=== PATIENT | female | born 1965 | race Caucasian/White ===

== ENCOUNTER 2016-08-14 18:37 | Emergency (ER) | payer SELFPAY ==
[2016-08-14 18:55] VITALS: BP 141/63
[2016-08-14 19:50] LABS: OBC FLU VALID
[2016-08-14] MEDS ORDERED: IPRATRPIUM/ALBUTEROL 0.5/2.5MG 3 ML NEBU. NEB ONE (20:00)
[2016-08-14] MEDS ORDERED: BENZONATATE 100 MG CAPSULE. PO ONE (20:00)
[2016-08-14] MEDS ORDERED: PREDNISONE 20 MG TABLET PO ONE (20:00)
[2016-08-14] MEDS ORDERED: NAPROXEN 250 MG TABLET PO ONE (20:00)
[2016-08-14] MEDS ORDERED: AZITHROMYCIN 250 MG TABLET PO ONE (20:15)
[2016-08-14] MEDS ORDERED: BENZ100C PO (20:26)
[2016-08-14] MEDS ORDERED: PROAIR HFA8.5 GM INH (20:26)
[2016-08-14] MEDS ORDERED: AZIT250T PO (20:26)
[2016-08-14] MEDS ORDERED: NAPR250T2 PO (20:26)
--- NOTE | 2016-08-14 22:11 | ED.ADGEN ---
Past Medical History Past Medical History: Asthma, CAD, Depression, Diabetes-Type II, High Cholesterol, Hypertension Additional Past Medical Histor: PERIPHERAL NEUROPATHY Past Surgical History: Additional Past Surgical Histo: CARPAL TUNNEL Additional Information: 1 PPD Alcohol Use: None Drug Use: None Adult General Chief Complaint Chief Complaint: SHORTNESS OF BREATH HPI HPI Patient is a 51 year old woman, history of type 2 diabetes mellitus, hypertension, hyperlipidemia, CAD, who presents to the emergency department with a complaint of cough productive of clear sputum, fever, nasal congestion, sore throat, generalized malaise and body aches over the past several days. Patient states that she's had sick contacts among her children and , who are currently her feeling better at this time. She states that she was using her albuterol inhaler home, did run out of the medication. She states she has been taking other medications as directed. No recent hospitalization or antibiotic use. She does not take steroids regular basis. Noted be wheezing upon arrival in the ED, oxygen saturation is in the mid to upper 90s, heart rate is in the 80s, patient is afebrile in the ED without receiving any antipyretics. Patient does smoke at least a half pack per day, but have been able to smoke over the past several days due to symptoms severity. Review of Systems Review of Systems Constitutional: Fevers and chills. Eyes: Denies change in visual acuity. [] HENT: Nasal congestion and sore throat over the past several days. [] Respiratory: Cough productive of clear sputum, shortness of breath, wheezing. Cardiovascular: Denies chest pain or edema. [] GI: Denies abdominal pain, nausea, vomiting, bloody stools or diarrhea. [] : Denies dysuria. [] Musculoskeletal: Denies back pain or joint pain. [] Body aches and generalized malaise. Integument: Denies rash. [] Neurologic: Denies headache, focal weakness or sensory changes. [] Endocrine: Denies polyuria or polydipsia. [] Lymphatic: Denies swollen glands. [] Psychiatric: Denies depression or anxiety. [] Current Medications Current Medications Current Medications Medications (Trade) Dose Ordered Sig/Erica Start Time Stop Time Status Last Admin Dose Admin Albuterol/ Ipratropium (Duoneb) 3 ml 1X ONCE 08/14/16 20:00 08/14/16 20:01 DC 08/14/16 19:46 3 ML Azithromycin (Zithromax) 500 mg 1X ONCE 08/14/16 20:15 08/14/16 20:26 DC Benzonatate (Tessalon Perle) 100 mg 1X ONCE 08/14/16 20:00 08/14/16 20:01 DC 08/14/16 19:42 100 MG Naproxen (Naprosyn) 250 mg 1X ONCE 08/14/16 20:00 08/14/16 20:01 DC 08/14/16 19:42 250 MG Prednisone (Prednisone) 40 mg 1X ONCE 08/14/16 20:00 08/14/16 20:01 DC 08/14/16 19:43 40 MG Allergies Allergies Allergies Coded Allergies Type Severity Reaction Last Updated Verified No Known Drug Allergies 08/14/16 No Physical Exam Physical Exam Constitutional: Well developed, well nourished, no acute distress, non-toxic appearance. [] HENT: Normocephalic, atraumatic, bilateral external ears normal, oropharynx moist, no oral exudates, nose normal. [] Eyes: PERRLA, EOMI, conjunctiva normal, no discharge. [] Neck: Normal range of motion, no tenderness, supple, no stridor. [] Cardiovascular:Heart rate regular rhythm, no murmur [] Lungs & Thorax: Bilateral breath sounds clear to auscultation [] Abdomen: Bowel sounds normal, soft, no tenderness, no masses, no pulsatile masses. [] Skin: Warm, dry, no erythema, no rash. [] Back: No tenderness, no CVA tenderness. [] Extremities: No tenderness, no cyanosis, no clubbing, ROM intact, no edema. [] Neurologic: Alert and oriented X 3, normal motor function, normal sensory function, no focal deficits noted. [] Psychologic: Affect normal, judgement normal, mood normal. [] Current Patient Data Vital Signs Vital Signs Date Time Temp Pulse Resp B/P Pulse Ox O2 Delivery O2 Flow Rate FiO2 08/14/16 19:44 96 Room Air 08/14/16 18:55 98.9 81 16 141/63 98.9 Lab Values Laboratory Tests Test 08/14/16 19:14 Influenza Type A Antigen Negative (NEGATIVE) Influenza Type B Antigen Negative (NEGATIVE) EKG EKG ECG: Rhythm strip: Heart rate 80 beats minute, sinus rhythm, no ectopy. As interpreted by me. [] Radiology/Procedures Radiology/Procedures Chest x-ray: PA and lateral: Patient with hyperinflation, mild haziness lower lobes bilaterally, no discrete infiltrates or effusion identified, most consistent with viral infection. As interpreted by me. Course & Med Decision Making Course & Med Decision Making Pertinent Labs and Imaging studies reviewed. (See chart for details) Patient received a DuoNeb in the ED, along with oral steroids, Tessalon Perle. Chest x-ray reveals haziness in the bilateral lobes, no discrete infiltrate, symptoms and examination are consistent with a viral illness, however based on patient's history, smoking, severity of cough, and x-ray findings, will additionally treat with a Z-Jovi, for she first dose of azithromycin in the ED without issue. Discussed with patient that her symptoms are most consistent with a viral illness, she was ambulated in the ED, trial ambulation with heart rate in the 80s, oxygen saturation in the mid upper 90s, with no significant symptoms. Patient written for additional 4 days of azithromycin, Tessalon Perle , naproxen, and albuterol inhaler, given clear and detailed return instructions with which she voiced understanding and agreement. Patient discharged home in stable condition to follow up with her PCP, and return to the ED for concerning symptoms as discussed. Sahara Disclaimer Sahara Disclaimer This electronic medical record was generated, in whole or in part, using a voice recognition dictation system. Departure Impression: Primary Impression: Bronchitis Additional Impression: Tobacco abuse Disposition: 01 HOME, SELF-CARE Condition: IMPROVED Scripts Albuterol Sulfate (Proair Hfa Inhaler)8.5 Gm Hfa.aer.ad1 Puff INH PRN Q6HRS PRN SHORTNESS OF BREATH #1 INHALER Ref 0 Prov:KEVINJOSH DO 08/14/16 Azithromycin (Zithromax)250 Mg [id number] Mg PO DAILY COUGH #4 TAB Ref 0 Prov:KEVINJOSH Mejia DO 08/14/16 Benzonatate (Tessalon Perle)100 Mg Capsule1 Cap PO TID PRN COUGH #21 CAP Prov:KEVINJOSH Mejia DO 08/14/16 Naproxen 250 Mg [id number] Mg PO BID PRN PAIN #10 Prov:KEVINJOSH COLLADO DO 08/14/16 Problem Qualifiers JOSH BROWN DO Aug 14, 2016 22:11
--- NOTE | 2016-08-15 08:48 | RAD ---
Chest, 2 views, 08/14/2016: History: Cough, shortness of breath The heart size and pulmonary vascularity are normal. There is a minimal hazy opacity laterally in the left base compatible with minimal infiltrate or scarring. The right lung is clear. There is no evidence of pleural fluid. Minimal spurring is present in the spine. IMPRESSION: Minimal left basilar infiltrate or scarring.
== END 2016-08-14 20:40 | disposition home or self-care (01) ==
LOC: ER 18:37
DX: J40 Bronchitis, not specified as acute or chronic (principal); F17.210 Nicotine dependence, cigarettes, uncomplicated; E11.42 Type 2 diabetes mellitus with diabetic polyneuropathy; J45.909 Unspecified asthma, uncomplicated; I25.10 Atherosclerotic heart disease of native coronary artery without angina pectoris; F32.9 Major depressive disorder, single episode, unspecified; E78.00 Pure hypercholesterolemia, unspecified; I10 Essential (primary) hypertension
CPT/HCPCS: 71020; 87804; 94250; 94640; 99285; J7512; J7620

== ENCOUNTER 2016-11-08 20:15 | Inpatient (IN) | payer SELFPAY ==
[~2016-11-08] VITALS: Ht 172.7 cm; Wt 86.2 kg
[~2016-11-08 20:15] MED LIST: AZIT250T PO; BENZ100C PO; NAPR250T2 PO; PROAIR HFA8.5 GM INH
--- NOTE | 2016-11-08 20:26 | PHYS DOC ---
Past Medical History Past Medical History: Asthma, CAD, Depression, Diabetes-Type II, High Cholesterol, Hypertension Additional Past Medical Histor: PERIPHERAL NEUROPATHY Past Surgical History: Additional Past Surgical Histo: CARPAL TUNNEL Alcohol Use: None Drug Use: None Adult General Chief Complaint Chief Complaint: SHORTNESS OF BREATH HPI HPI Patient is a 51 year old female presents emergency department stating that she has having shortness of air difficulty breathing. She states that she's been having this for the last 2 weeks. She states that she used her albuterol inhaler prior to arrival and still continues to have wheezing throughout. Patient states that she still continues to smoke cigarettes. She was seen here in the end of July was diagnosed with bronchitis. Patient does state she's had a cough this been nonproductive. Denies fever, chills or nausea vomiting Review of Systems Review of Systems Constitutional: Denies fever or chills [] Eyes: Denies change in visual acuity, redness, or eye pain [] HENT: Denies nasal congestion or sore throat [] Respiratory: cough with shortness of breath [] Cardiovascular: No additional information not addressed in HPI [] GI: Denies abdominal pain, nausea, vomiting, bloody stools or diarrhea [] : Denies dysuria or hematuria [] Musculoskeletal: Denies back pain or joint pain [] Integument: Denies rash or skin lesions [] Neurologic: Denies headache, focal weakness or sensory changes [] Current Medications Current Medications Current Medications Medications (Trade) Dose Ordered Sig/Erica Start Time Stop Time Status Last Admin Dose Admin Acetaminophen (Tylenol) 650 mg 1X ONCE 11/08/16 21:30 11/08/16 21:31 DC 11/08/16 21:14 650 MG Albuterol Sulfate (Ventolin Neb Soln) 2.5 mg PRN Q4HRS PRN 11/08/16 22:15 Albuterol/ Ipratropium (Duoneb) 3 ml RTQID 11/09/16 08:00 Azithromycin (Zithromax) 500 mg 1X ONCE 11/08/16 22:30 11/08/16 22:31 Budesonide (Pulmicort) 0.5 mg RTBID 11/09/16 08:00 Methylprednisolone Sodium Succinate (Solu-Medrol 125mg Vial) 125 mg 1X ONCE 11/08/16 21:00 11/08/16 21:01 DC 11/08/16 20:44 125 MG Allergies Allergies Allergies Coded Allergies Type Severity Reaction Last Updated Verified Sulfa (Sulfonamide Antibiotics) Allergy Intermediate 11/08/16 Yes amoxicillin Allergy Intermediate RASH 11/08/16 Yes clavulanic acid Allergy Intermediate RASH 11/08/16 Yes hydrocodone Allergy Intermediate VOMITING 11/08/16 Yes Physical Exam Physical Exam Constitutional: Well developed, well nourished, no acute distress, non-toxic appearance. [] HENT: Normocephalic, atraumatic, bilateral external ears normal, oropharynx moist, no oral exudates, nose normal. [] Eyes: PERRLA, EOMI, conjunctiva normal, no discharge. [] Neck: Normal range of motion, no tenderness, supple, no stridor. [] Cardiovascular:Heart rate regular rhythm, no murmur [] Lungs & Thorax: Bilateral breath sounds with wheezes noted throughout.] Skin: Warm, dry, no erythema, no rash. [] Back: No tenderness Extremities: No tenderness, no cyanosis, no clubbing, ROM intact, no edema. [] Neurologic: Alert and oriented X 3, normal motor function, normal sensory function, no focal deficits noted. [] Psychologic: Affect normal, judgement normal, mood normal. [] Current Patient Data Vital Signs Vital Signs Date Time Temp Pulse Resp B/P Pulse Ox O2 Delivery O2 Flow Rate FiO2 11/08/16 21:16 Room Air 11/08/16 20:20 97.8 80 26 96 97.8 EKG EKG [] Radiology/Procedures Radiology/Procedures [] Course & Med Decision Making Course & Med Decision Making Pertinent Labs and Imaging studies reviewed. (See chart for details) Patient has been provided with 2 respiratory treatments here in the emergency department which she still needs to have wheezing throughout with shortness of air. Patient is very tearful stating that she really doesn't feel well and she would really like to go home although she continues to state that she does not have any medications at home as she is not able to afford them. Explained to patient that we need to get her wheezing and shortness of air under control they for admission into the hospital is recommended. Call his been placed to the hospitalist for admission. [address] pisano in regards to admission for this patient. Orders have been completed. [] Dragtyler Disclaimer Dragon Disclaimer This electronic medical record was generated, in whole or in part, using a voice recognition dictation system. Departure Departure Impression: Primary Impression: Asthma exacerbation Disposition: ADMITTED INPATIENT Admitting Physician: Bernadine Pisano Condition: STABLE Referrals: NO PCP (PCP) BRENDA WEBB APRN Nov 08, 2016 20:26
[2016-11-08] MEDS ORDERED: methylPREDNISolone SOD SUCC PF 125 MG/2 ML VIAL. IM ONE (21:00)
[2016-11-08] MEDS ORDERED: IPRATRPIUM/ALBUTEROL 0.5/2.5MG 3 ML NEBU. NEB ONE (21:00)
[2016-11-08] MEDS ORDERED: ALBUTEROL SULFATE 2.5 MG/3 ML NEBU. NEB ONE (21:15)
[2016-11-08] MEDS ORDERED: ACETAMINOPHEN 325 MG TABLET. PO ONE (21:30)
[2016-11-08] MEDS ORDERED: HYDROcodone/CHLORPHEN POLIS 5 ML SUS.ER.12H PO PRN (22:00)
[2016-11-08] MEDS ORDERED: guaiFENesin DM 200MG/20MG 10 ML SYRUP PO PRN (22:00)
[2016-11-08] MEDS ORDERED: ALBUTEROL SULFATE 2.5 MG/3 ML NEBU. NEB PRN (22:15)
[2016-11-08 22:19] LABS: BASO # 0.1 x10^3/uL (0.0-0.2); BASO % 1 % (0-3); EOS % 0 % (0-3); HEMATOCRIT 44.8 % (36.0-47.0); HEMOGLOBIN 14.9 g/dL (12.0-15.5); LYMPH # 2.2 x10^3/uL (1.0-4.8); LYMPH % 13 % (24-48); MEAN CORPUSCULAR HEMOGLOBIN 30 pg (25-35); MEAN CORPUSCULAR HGB CONC 33 g/dL (31-37); MEAN CORPUSCULAR VOLUME 89 fL (79-100); MONO % 5 % (0-9); NEUT % 81 % (31-73); PLATELET COUNT 307 x10^3/uL (140-400); RED BLOOD COUNT 5.04 x10^6/uL (3.50-5.40); RED CELL DISTRIBUTION WIDTH 16.3 % (11.5-14.5); WHITE BLOOD COUNT 16.8 x10^3/uL (4.0-11.0)
[2016-11-08] MEDS ORDERED: AZITHROMYCIN 250 MG TABLET. PO ONE (22:30)
[2016-11-08] MEDS ORDERED: BUDESONIDE 0.5 MG/2 ML NEBU. NEB ONE (22:30)
[2016-11-08 22:35] LABS: CALCIUM 9.6 mg/dL (8.5-10.1); CREATININE 1.1 mg/dL (0.6-1.0); POTASSIUM 4.6 mmol/L (3.5-5.1)
[2016-11-08 22:42] LABS: ALBUMIN 3.1 g/dL (3.4-5.0); ALBUMIN/GLOBULIN RATIO 0.6 (1.0-1.7); TOTAL BILIRUBIN 0.4 mg/dL (0.2-1.0)
[2016-11-08 23:00] VITALS: BP 129/54
[2016-11-08 23:22] LABS: PLT ESTIMATE ADEQUATE (ADEQUATE)
--- NOTE | 2016-11-08 23:24 | PDOC1 ---
History and Physical Date of Admission Date of Admission DATE: 11/08/16 TIME: 23:24 Identification/Chief Complaint Chief Complaint short of breath Problems: Source Source: Caregiver (daughter, ), Chart review, Patient History of Present Illness History of Present Illness Ms. Diez is a 51 year old female admit for aute shortness of air difficulty breathing. She states that she's been having this for the last 2 weeks, her has similar symptoms, sore throat, runny nose and congestion. 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 She was seen here in the end of July was diagnosed with bronchitis. Past Medical History Cardiovascular: HTN Pulmonary: Asthma Infectious disease: No pertinent hx ENT: No pertinent hx Endocrine: Diabetes Dermatology: No pertinent hx Family History Family History: No Significant Social History Smoke: <1 pack per day ALCOHOL: none Drugs: None Current Problem List Problem List Problems Medical Problems: (1) Asthma attack Status: Acute (2) Asthma exacerbation Status: Acute Problems: Current Medications Current Medications Current Medications Albuterol/ Ipratropium (Duoneb) 3 ml 1X ONCE NEB Last administered on 20:45; Start 11/08/16 at 21:00; Stop 11/08/16 at 21:01; Status DC Methylprednisolone Sodium Succinate (Solu-Medrol 125mg Vial) 125 mg 1X ONCE IM Last administered on 11/08/16 20:44; Start 11/08/16 at 21:00; Stop 11/08/16 at 21:01; Status DC Acetaminophen (Tylenol) 650 mg 1X ONCE PO Last administered on 11/08/16 21:14 ; Start 11/08/16 at 21:30; Stop 11/08/16 at 21:31; Status DC Albuterol Sulfate (Ventolin Neb Soln) 2.5 mg 1X ONCE NEB Last administered on 11/08/16 21:18; Start 11/08/16 at 21:15; Stop 11/08/16 at 21:19; Status DC Albuterol/ Ipratropium (Duoneb) 3 ml RTQID NEB ; Start 11/09/16 at 08:00; Stop 11/10/16 at 07:59; Status Cancel Azithromycin (Zithromax) 500 mg 1X ONCE PO ; Start 11/08/16 at 22:30; Stop at 22:31; Status DC Budesonide (Pulmicort) 0.5 mg 1X ONCE NEB ; Start 11/08/16 at 22:30; Stop 11/08 at 22:31; Status DC Budesonide (Pulmicort) 0.5 mg RTBID NEB ; Start 11/09/16 at 08:00 Albuterol/ Ipratropium (Duoneb) 3 ml RTQID NEB ; Start 11/09/16 at 08:00 Albuterol Sulfate (Ventolin Neb Soln) 2.5 mg PRN Q4HRS PRN NEB DYSPNEA; Start 11/08/16 at 22:15 Guaifenesin (Robitussin Dm) 10 ml PRN Q6HRS PRN PO COUGH; Start 11/08/16 at 22: 00 Chlorphenir/ Hydrocodone Polistirex (Tussionex) 5 ml PRN Q12HR PRN PO COUGH; Start 11/08/16 at 22:00; Stop 11/08/16 at 22:16; Status DC Prednisone (Prednisone) 60 mg DAILY08 PO ; Start 11/09/16 at 08:00 Active Scripts Active Proair Hfa Inhaler (Albuterol Sulfate) 8.5 Gm Hfa.aer.ad 1 Puff INH PRN Q6HRS PRN Zithromax (Azithromycin) 250 Mg Tablet 250 Mg PO DAILY Tessalon Perle (Benzonatate) 100 Mg Capsule 1 Cap PO TID PRN Naproxen 250 Mg Tablet 250 Mg PO BID PRN Allergies Allergies: Coded Allergies: Sulfa (Sulfonamide Antibiotics) (Verified Allergy, Intermediate, 11/08/16) amoxicillin (Verified Allergy, Intermediate, RASH, 11/08/16) clavulanic acid (Verified Allergy, Intermediate, RASH, 11/08/16) hydrocodone (Verified Allergy, Intermediate, VOMITING, 11/08/16) ROS General: YES: Appetite, Chills, Fatigue, Malaise PSYCHOLOGICAL ROS: YES: Irritablity, Sleep disturbances, No: Anxiety, Behavioral Disorder, Concentration difficultie, Decreased libido , Depression, Disorientation, Hallucinations, Hostility, Memory difficulties, Mood Swings, Obsessive thoughts, Other Eyes: No Blurry vision, No Decreased vision, No Double vision, No Dry eyes, No Excessive tearing, No Eye Pain, No Itchy Eyes, No Loss of vision, No Other, No Photophobia, No Scotomata, No Uses contacts, No Uses glasses HEENT: YES: Heacaches, Nasal congestion, Sneezing, Sore Throat, No: Epistaxis, Hearing change, Nasal discharge, Oral lesions, Other, Sinus pain, Snoring, Tinnitus, Vertigo, Visual Changes, Vocal changes Respiratory: YES: Cough, SOB with excertion, No: Hemoptysis, Orthopnea, Other, Pleuritic Pain, Shortness of breath, Sputum Changes, Stridor, Tachypnea, Wheezing Cardiovascular: No Chest Pain, No Edema, No Lt Headedness, No Orthopnea, No Other, No Palpitations, No Paroxysmal Noc. Dyspnea Gastrointestinal: Yes Nausea, No Abdominal Pain, No Constipation, No Diarrhea, No Hematochezia, No Melena, No Other, No Vomiting Genitourinary: No , No , No , No , No , No , No , No Discharge, No Dysuria, No Flank Pain, No Frequency, No Hematuria, No Incontinence, No Other, No Pain, No Retention, No Urgency Musculoskeletal: Yes Joint Pain, No Gait Disturbance, No Joint Stiffness, No Joint Swelling, No Muscle Pain, No Muscular Weakness, No Other, No Pain In:, No Swelling In: Neurological: No Behavorial Changes, No Bowel/Bladder ControlChng, No Confusion , No Dizziness, No Gait Disturbance, No Headaches, No Impaired Coord/balance, No Memory Loss, No Numbness/Tingling, No Other, No Seizures, No Speech Problems , No Tremors, No Visual Changes, No Weakness Skin: Yes Dry Skin, No Acne, No Eczema, No Hair Changes, No Lumps, No Mole Changes, No Mottling, No Nail Changes, No Other, No Pruritus, No Rash, No Skin Lesion Changes Physical Exam General: Alert, Cooperative, mild distress HEENT: Atraumatic, PERRLA, EOMI, Other (dry OP) Lungs: Clear to auscultation, Normal air movement, Other (rales, end wheeze, ) Heart: S1S2, no murmurs Abdomen: Normal bowel sounds, Soft Extremities: No clubbing, No edema Skin: No significant lesion Neuro: Normal speech, Normal tone, Cranial nerves 3-12 NL Psych/Mental Status: Mood NL, Other (lethargic) Vitals Vitals Vital Signs Date Time Temp Pulse Resp B/P Pulse Ox O2 Delivery O2 Flow Rate FiO2 11/08/16 22:00 78 20 140/63 98 Room Air 11/08/16 20:20 97.8 97.8 Labs Labs Laboratory Tests Test 11/08/16 22:00 White Blood Count 16.8x10^3/uL (4.0-11.0) Red Blood Count 5.04x10^6/uL (3.50-5.40) Hemoglobin 14.9g/dL (12.0-15.5) Hematocrit 44.8% (36.0-47.0) Mean Corpuscular Volume 89fL (79-100) Mean Corpuscular Hemoglobin 30pg (25-35) Mean Corpuscular Hemoglobin Concent 33g/dL (31-37) Red Cell Distribution Width 16.3% (11.5-14.5) Platelet Count 307x10^3/uL (140-400) Neutrophils (%) (Auto) 81% (31-73) Lymphocytes (%) (Auto) 13% (24-48) Monocytes (%) (Auto) 5% (0-9) Eosinophils (%) (Auto) 0% (0-3) Basophils (%) (Auto) 1% (0-3) Neutrophils # (Auto) 13.6x10^3uL (1.8-7.7) Lymphocytes # (Auto) 2.2x10^3/uL (1.0-4.8) Monocytes # (Auto) 0.9x10^3/uL (0.0-1.1) Eosinophils # (Auto) 0.0x10^3/uL (0.0-0.7) Basophils # (Auto) 0.1x10^3/uL (0.0-0.2) Segmented Neutrophils % 79% (35-66) Band Neutrophils % 6% (0-9) Lymphocytes % 13% (24-48) Monocytes % 2% (0-10) Platelet Estimate Adequate (ADEQUATE) Sodium Level 134mmol/L (136-145) Potassium Level 4.6mmol/L (3.5-5.1) Chloride Level 98mmol/L (98-107) Carbon Dioxide Level 26mmol/L (21-32) Anion Gap 10 (6-14) Blood Urea Nitrogen 22mg/dL (7-20) Creatinine 1.1mg/dL (0.6-1.0) Estimated GFR (Cockcroft-Gault) 52.0 BUN/Creatinine Ratio 20 (6-20) Glucose Level 390mg/dL (70-99) Calcium Level 9.6mg/dL (8.5-10.1) Total Bilirubin 0.4mg/dL (0.2-1.0) Aspartate Amino Transf (AST/SGOT) 9U/L (15-37) Alanine Aminotransferase (ALT/SGPT) 20U/L (14-59) Alkaline Phosphatase 144U/L (46-116) Total Protein 8.0g/dL (6.4-8.2) Albumin 3.1g/dL (3.4-5.0) Albumin/Globulin Ratio 0.6 (1.0-1.7) Laboratory Tests Test 11/08/16 22:00 White Blood Count 16.8x10^3/uL (4.0-11.0) Red Blood Count 5.04x10^6/uL (3.50-5.40) Hemoglobin 14.9g/dL (12.0-15.5) Hematocrit 44.8% (36.0-47.0) Mean Corpuscular Volume 89fL (79-100) Mean Corpuscular Hemoglobin 30pg (25-35) Mean Corpuscular Hemoglobin Concent 33g/dL (31-37) Red Cell Distribution Width 16.3% (11.5-14.5) Platelet Count 307x10^3/uL (140-400) Neutrophils (%) (Auto) 81% (31-73) Lymphocytes (%) (Auto) 13% (24-48) Monocytes (%) (Auto) 5% (0-9) Eosinophils (%) (Auto) 0% (0-3) Basophils (%) (Auto) 1% (0-3) Neutrophils # (Auto) 13.6x10^3uL (1.8-7.7) Lymphocytes # (Auto) 2.2x10^3/uL (1.0-4.8) Monocytes # (Auto) 0.9x10^3/uL (0.0-1.1) Eosinophils # (Auto) 0.0x10^3/uL (0.0-0.7) Basophils # (Auto) 0.1x10^3/uL (0.0-0.2) Segmented Neutrophils % 79% (35-66) Band Neutrophils % 6% (0-9) Lymphocytes % 13% (24-48) Monocytes % 2% (0-10) Platelet Estimate Adequate (ADEQUATE) Sodium Level 134mmol/L (136-145) Potassium Level 4.6mmol/L (3.5-5.1) Chloride Level 98mmol/L (98-107) Carbon Dioxide Level 26mmol/L (21-32) Anion Gap 10 (6-14) Blood Urea Nitrogen 22mg/dL (7-20) Creatinine 1.1mg/dL (0.6-1.0) Estimated GFR (Cockcroft-Gault) 52.0 BUN/Creatinine Ratio 20 (6-20) Glucose Level 390mg/dL (70-99) Calcium Level 9.6mg/dL (8.5-10.1) Total Bilirubin 0.4mg/dL (0.2-1.0) Aspartate Amino Transf (AST/SGOT) 9U/L (15-37) Alanine Aminotransferase (ALT/SGPT) 20U/L (14-59) Alkaline Phosphatase 144U/L (46-116) Total Protein 8.0g/dL (6.4-8.2) Albumin 3.1g/dL (3.4-5.0) Albumin/Globulin Ratio 0.6 (1.0-1.7) VTE Prophylaxis Ordered VTE Prophylaxis Devices: No VTE Pharmacological Prophylaxi: Yes Assessment/Plan Assessment/Plan Asthma exacerbation acute bronchitis htn, accel, out of meds for almost amonth, takes lisinopril 40 normally SIRS, leukocytosis, tachypnea, abx given in ER, will treat as sepsis, gentle with fluid due to accelerated HTN tobaccoism, cessation urged, nicotine patch here dehydrated in appearance, , IV fluid X1 liter, will do 1/2 NS for accel htn, serum Na+ level noted Dm2, marked hyperglycemia, no home meds listed, 125 solumedrol given in ER will surely exacerbate, levemir now, and aspart now and sched and SSI serum alb 3.1, mild protein malnutrition due to acute illness only, pt is obese admit KARINA CONDE MD Nov 08, 2016 23:24
[2016-11-08] MEDS ORDERED: NON FORMULARY ITEM (Albuterol Sulfate (Proair Hfa Inhaler) 1 PUFF) INH PRN (23:30)
[2016-11-08] MEDS ORDERED: IV 1/2 NORMAL SALINE 1,000 ML IV ONE (23:30)
[2016-11-08] MEDS ORDERED: BENZONATATE 100 MG CAPSULE. PO PRN (23:30)
[2016-11-08] MEDS ORDERED: DEXTROSE 50% 25 GM / 50ML DISP.SYRIN. IV PRN (23:30)
[2016-11-08] MEDS ORDERED: INSULIN DETEMIR 300 UNITS/3 ML INSULN.PEN. SQ SCH (23:45)
[2016-11-08] MEDS ORDERED: NICOTINE 14MG PATCH. TD PRN (23:45)
[2016-11-08] MEDS ORDERED: INSULIN ASPART 300 UNITS/3 ML INSULN.PEN SQ ONE (23:45)
--- NOTE | 2016-11-09 00:47 | ACF ---
Admission Forms Criteria ASTHMA Clinical Indications for Admission to Inpatient Care (Place 'X' for any and all applicable criteria): Admission is indicated for ANY ONE of the following (1)(2)(3)(4)(5): [ ]I. Absent or markedly diminished breath sounds (silent chest) [ ]II. Oxygen saturation < 92% [ ]III. PaCO2 = / > 42 mm Hg (5.6 kPa) [ ]IV. Peak expiratory flow rate < 40% of predicted or personal best after treatment. [ ]V. Peak expiratory flow rate < 33% of predicted or personal before after treatment [ ]. Change in mental status [ ]VII. Ventilatory support required [ ]VIII. PaO2 < 60 mm Hg (8.0 kPa) [ ]IX. Cyanosis [ ]X. Cardiac dysrhythmia (e.g., bradycardia) [ ]XI. Hemodynamic instability [ ]XII. Radiographic evidence of complication requiring inpatient treatment (e.g., pneumonia, pneumothorax) [X ]XIII. Inpatient admission required rather than observation care (also use Asthma: Observation Care guideline as appropriate) because of ANY ONE of the following: [X ]a) Respiratory finding that is severe or persistent (eg, dyspnea, tachypnea, accessory muscle use) [ ]b) Airflow measurements less than 60% of predicted or personal best that persist (e.g., over 24 hours) or worsen despite treatments [ ]c) Supplemental oxygen or respiratory treatments for over 24 hours that are performable only in acute inpatient setting [ ]d) Other condition, treatment or monitoring requiring inpatient admission. Extended stay beyond goal length of stay may be needed for (26)(27)(28): [ ]a) Severe respiratory failure (23) (29) (30) [ ]b) Secondary causes and complications (25) [ ]c) Status asthmaticus [ ]d) Chronic obstructive asthma [ ]e) Older patients (29) [ ]f) Slow resolution [ ]g) Clinically significant exacerbation of comorbidities (eg, sosa. heart failure, atrial fibrillation) The original [employer] content created by [employer] has been revised. The portions of the content which have been revised are identified through the use of italic text or in bold, and [facility] [employer] has neither reviewed nor approved the modified material. All other unmodified content is copyright [facility] [employer] Please see references footnoted in the original [facility] edition 2016 Admission Criteria Met?: Yes RENUKA NOEL Nov 09, 2016 00:47
[2016-11-09 03:00] VITALS: BP 132/60
[2016-11-09 06:16] LABS: BASO % 0 % (0-3); EOS % 0 % (0-3); HEMATOCRIT 44.4 % (36.0-47.0); HEMOGLOBIN 14.4 g/dL (12.0-15.5); LYMPH # 0.9 x10^3/uL (1.0-4.8); LYMPH % 6 % (24-48); MEAN CORPUSCULAR HEMOGLOBIN 29 pg (25-35); MEAN CORPUSCULAR HGB CONC 33 g/dL (31-37); MEAN CORPUSCULAR VOLUME 90 fL (79-100); MONO % 1 % (0-9); NEUT % 93 % (31-73); PLATELET COUNT 286 x10^3/uL (140-400); RED BLOOD COUNT 4.95 x10^6/uL (3.50-5.40); RED CELL DISTRIBUTION WIDTH 16.5 % (11.5-14.5); WHITE BLOOD COUNT 15.8 x10^3/uL (4.0-11.0)
[2016-11-09] MEDS ORDERED: INSULIN ASPART 300 UNITS/3 ML INSULN.PEN SQ ONE (06:30)
[2016-11-09 06:44] LABS: CALCIUM 8.9 mg/dL (8.5-10.1); CREATININE 1.1 mg/dL (0.6-1.0); POTASSIUM 4.7 mmol/L (3.5-5.1)
[2016-11-09 07:00] VITALS: BP 139/68
[2016-11-09 07:07] LABS: NEG OBC UR NEG; POS OBC UR POS
[2016-11-09 07:12] LABS: BILIRUBIN,URINE NEGATIVE (NEG); GLUCOSE,URINE >=1000 mg/dL (NEG); NITRITE,URINE NEGATIVE (NEG); PH,URINE 5.5; PROTEIN,URINE NEGATIVE (NEG-TRACE)
[2016-11-09 07:27] LABS: BACTERIA,URINE 0 /HPF (0-FEW); RBC,URINE 0 /HPF (0-2); WBC,URINE 0 /HPF (0-4)
[2016-11-09] MEDS: INSULIN ASPART 300 UNITS/3 ML INSULN.PEN SQ SCH ×4 (07:30→11:21)
[2016-11-09] MEDS: IPRATRPIUM/ALBUTEROL 0.5/2.5MG 3 ML NEBU. NEB SCH ×2 (07:42→11:11)
--- NOTE | 2016-11-09 07:52 | RAD ---
Exam: PA and lateral chest radiograph History: Dyspnea for one day, asthma. Comparison: 08/14/2016. Findings: Cardiomediastinal silhouette is within normal limits for size. Vague densities are seen involving both lower lung murillo on the frontal view, may indicate mild scarring. There is interval development of irregular somewhat linear density involving the lingula. No pleural effusion is seen. Impression: 1. Both lower lung murillo demonstrate vague chronic densities, which could indicate mild scarring/fibrotic change. 2. There is new roughly linear density involving the lingula, may represent atelectasis or possibly developing airspace disease.
[2016-11-09] MEDS ORDERED: predniSONE 20 MG TABLET PO SCH (08:00)
[2016-11-09] MEDS ORDERED: BUDESONIDE 0.5 MG/2 ML NEBU. NEB SCH (08:00)
[2016-11-09] MEDS ORDERED: IPRATRPIUM/ALBUTEROL 0.5/2.5MG 3 ML NEBU. NEB SCH (08:00)
[2016-11-09] MEDS ORDERED: LISINOPRIL 40 MG TABLET. PO SCH (09:00)
[2016-11-09] MEDS ORDERED: AZITHROMYCIN 250 MG TABLET. PO SCH (09:00)
[2016-11-09 11:18] VITALS: BP 121/63
--- NOTE | 2016-11-09 11:45 | PDOC ---
PROGRESS NOTES Chief Complaint Chief Complaint cc: sob A/P 1. Acute exacerbation of chronic obstructive pulmonary disease. 2. Possible pneumonitis. Plan Prednisone periodic bronchodilators labs reviewed, oral abx Pl see medications anticipated DC if symptoms improves Vitals Vitals Vital Signs Date Time Temp Pulse Resp B/P Pulse Ox O2 Delivery O2 Flow Rate FiO2 11/09/16 11:18 98.0 82 20 121/63 92 Room Air 98.0 Physical Exam General: Alert, Cooperative, mild distress Heart: Regular rate, Normal S2 Lungs: Wheezing Abdomen: Normal bowel sounds, Soft Extremities: No clubbing, No edema Skin: No significant lesion Labs LABS Laboratory Tests Test 11/08/16 22:00 11/09/16 00:27 11/09/16 01:00 11/09/16 04:55 White Blood Count 16.8x10^3/uL (4.0-11.0) 15.8x10^3/uL (4.0-11.0) Red Blood Count 5.04x10^6/uL (3.50-5.40) 4.95x10^6/uL (3.50-5.40) Hemoglobin 14.9g/dL (12.0-15.5) 14.4g/dL (12.0-15.5) Hematocrit 44.8% (36.0-47.0) 44.4% (36.0-47.0) Mean Corpuscular Volume 89fL (79-100) 90fL (79-100) Mean Corpuscular Hemoglobin 30pg (25-35) 29pg (25-35) Mean Corpuscular Hemoglobin Concent 33g/dL (31-37) 33g/dL (31-37) Red Cell Distribution Width 16.3% (11.5-14.5) 16.5% (11.5-14.5) Platelet Count 307x10^3/uL (140-400) 286x10^3/uL (140-400) Neutrophils (%) (Auto) 81% (31-73) 93% (31-73) Lymphocytes (%) (Auto) 13% (24-48) 6% (24-48) Monocytes (%) (Auto) 5% (0-9) 1% (0-9) Eosinophils (%) (Auto) 0% (0-3) 0% (0-3) Basophils (%) (Auto) 1% (0-3) 0% (0-3) Neutrophils # (Auto) 13.6x10^3uL (1.8-7.7) 14.7x10^3uL (1.8-7.7) Lymphocytes # (Auto) 2.2x10^3/uL (1.0-4.8) 0.9x10^3/uL (1.0-4.8) Monocytes # (Auto) 0.9x10^3/uL (0.0-1.1) 0.2x10^3/uL (0.0-1.1) Eosinophils # (Auto) 0.0x10^3/uL (0.0-0.7) 0.0x10^3/uL (0.0-0.7) Basophils # (Auto) 0.1x10^3/uL (0.0-0.2) 0.0x10^3/uL (0.0-0.2) Segmented Neutrophils % 79% (35-66) Band Neutrophils % 6% (0-9) Lymphocytes % 13% (24-48) Monocytes % 2% (0-10) Platelet Estimate Adequate (ADEQUATE) Sodium Level 134mmol/L (136-145) 133mmol/L (136-145) Potassium Level 4.6mmol/L (3.5-5.1) 4.7mmol/L (3.5-5.1) Chloride Level 98mmol/L (98-107) 97mmol/L (98-107) Carbon Dioxide Level 26mmol/L (21-32) 23mmol/L (21-32) Anion Gap 10 (6-14) 13 (6-14) Blood Urea Nitrogen 22mg/dL (7-20) 28mg/dL (7-20) Creatinine 1.1mg/dL (0.6-1.0) 1.1mg/dL (0.6-1.0) Estimated GFR (Cockcroft-Gault) 52.0 52.0 BUN/Creatinine Ratio 20 (6-20) Glucose Level 390mg/dL (70-99) 426mg/dL (70-99) Calcium Level 9.6mg/dL (8.5-10.1) 8.9mg/dL (8.5-10.1) Total Bilirubin 0.4mg/dL (0.2-1.0) Aspartate Amino Transf (AST/SGOT) 9U/L (15-37) Alanine Aminotransferase (ALT/SGPT) 20U/L (14-59) Alkaline Phosphatase 144U/L (46-116) Total Protein 8.0g/dL (6.4-8.2) Albumin 3.1g/dL (3.4-5.0) Albumin/Globulin Ratio 0.6 (1.0-1.7) Glucose (Fingerstick) 487mg/dL (70-99) Urine Collection Type Unknown Urine Color Yellow Urine Clarity Clear Urine pH 5.5 Urine Specific [place] >=1.030 Urine Protein Negativemg/dL (NEG-TRACE) Urine Glucose (UA) >=1000mg/dL (NEG) Urine Ketones (Stick) Negativemg/dL (NEG) Urine Blood Negative (NEG) Urine Nitrite Negative (NEG) Urine Bilirubin Negative (NEG) Urine Urobilinogen Dipstick 1.0mg/dL (0.2 mg/dL) Urine Leukocyte Esterase Negative (NEG) Urine RBC 0/HPF (0-2) Urine WBC 0/HPF (0-4) Urine Bacteria 0/HPF (0-FEW) Urine Test Negative (NEG) Test 11/09/16 05:54 11/09/16 07:29 11/09/16 10:48 Glucose (Fingerstick) 430mg/dL (70-99) 390mg/dL (70-99) 463mg/dL (70-99) Assessment and Plan Assessmemt and Plan Problems Medical Problems: (1) Asthma attack Status: Acute (2) Asthma exacerbation Status: Acute Problems: Comment Review of Relevant I have reviewed the following items megan (where applicable) has been applied. Labs Laboratory Tests Test 11/08/16 22:00 11/09/16 00:27 11/09/16 01:00 11/09/16 04:55 White Blood Count 16.8x10^3/uL (4.0-11.0) 15.8x10^3/uL (4.0-11.0) Red Blood Count 5.04x10^6/uL (3.50-5.40) 4.95x10^6/uL (3.50-5.40) Hemoglobin 14.9g/dL (12.0-15.5) 14.4g/dL (12.0-15.5) Hematocrit 44.8% (36.0-47.0) 44.4% (36.0-47.0) Mean Corpuscular Volume 89fL (79-100) 90fL (79-100) Mean Corpuscular Hemoglobin 30pg (25-35) 29pg (25-35) Mean Corpuscular Hemoglobin Concent 33g/dL (31-37) 33g/dL (31-37) Red Cell Distribution Width 16.3% (11.5-14.5) 16.5% (11.5-14.5) Platelet Count 307x10^3/uL (140-400) 286x10^3/uL (140-400) Neutrophils (%) (Auto) 81% (31-73) 93% (31-73) Lymphocytes (%) (Auto) 13% (24-48) 6% (24-48) Monocytes (%) (Auto) 5% (0-9) 1% (0-9) Eosinophils (%) (Auto) 0% (0-3) 0% (0-3) Basophils (%) (Auto) 1% (0-3) 0% (0-3) Neutrophils # (Auto) 13.6x10^3uL (1.8-7.7) 14.7x10^3uL (1.8-7.7) Lymphocytes # (Auto) 2.2x10^3/uL (1.0-4.8) 0.9x10^3/uL (1.0-4.8) Monocytes # (Auto) 0.9x10^3/uL (0.0-1.1) 0.2x10^3/uL (0.0-1.1) Eosinophils # (Auto) 0.0x10^3/uL (0.0-0.7) 0.0x10^3/uL (0.0-0.7) Basophils # (Auto) 0.1x10^3/uL (0.0-0.2) 0.0x10^3/uL (0.0-0.2) Segmented Neutrophils % 79% (35-66) Band Neutrophils % 6% (0-9) Lymphocytes % 13% (24-48) Monocytes % 2% (0-10) Platelet Estimate Adequate (ADEQUATE) Sodium Level 134mmol/L (136-145) 133mmol/L (136-145) Potassium Level 4.6mmol/L (3.5-5.1) 4.7mmol/L (3.5-5.1) Chloride Level 98mmol/L (98-107) 97mmol/L (98-107) Carbon Dioxide Level 26mmol/L (21-32) 23mmol/L (21-32) Anion Gap 10 (6-14) 13 (6-14) Blood Urea Nitrogen 22mg/dL (7-20) 28mg/dL (7-20) Creatinine 1.1mg/dL (0.6-1.0) 1.1mg/dL (0.6-1.0) Estimated GFR (Cockcroft-Gault) 52.0 52.0 BUN/Creatinine Ratio 20 (6-20) Glucose Level 390mg/dL (70-99) 426mg/dL (70-99) Calcium Level 9.6mg/dL (8.5-10.1) 8.9mg/dL (8.5-10.1) Total Bilirubin 0.4mg/dL (0.2-1.0) Aspartate Amino Transf (AST/SGOT) 9U/L (15-37) Alanine Aminotransferase (ALT/SGPT) 20U/L (14-59) Alkaline Phosphatase 144U/L (46-116) Total Protein 8.0g/dL (6.4-8.2) Albumin 3.1g/dL (3.4-5.0) Albumin/Globulin Ratio 0.6 (1.0-1.7) Glucose (Fingerstick) 487mg/dL (70-99) Urine Collection Type Unknown Urine Color Yellow Urine Clarity Clear Urine pH 5.5 Urine Specific [place] >=1.030 Urine Protein Negativemg/dL (NEG-TRACE) Urine Glucose (UA) >=1000mg/dL (NEG) Urine Ketones (Stick) Negativemg/dL (NEG) Urine Blood Negative (NEG) Urine Nitrite Negative (NEG) Urine Bilirubin Negative (NEG) Urine Urobilinogen Dipstick 1.0mg/dL (0.2 mg/dL) Urine Leukocyte Esterase Negative (NEG) Urine RBC 0/HPF (0-2) Urine WBC 0/HPF (0-4) Urine Bacteria 0/HPF (0-FEW) Urine Test Negative (NEG) Test 11/09/16 05:54 11/09/16 07:29 11/09/16 10:48 Glucose (Fingerstick) 430mg/dL (70-99) 390mg/dL (70-99) 463mg/dL (70-99) Laboratory Tests Test 11/08/16 22:00 11/09/16 00:27 11/09/16 01:00 11/09/16 04:55 White Blood Count 16.8x10^3/uL (4.0-11.0) 15.8x10^3/uL (4.0-11.0) Red Blood Count 5.04x10^6/uL (3.50-5.40) 4.95x10^6/uL (3.50-5.40) Hemoglobin 14.9g/dL (12.0-15.5) 14.4g/dL (12.0-15.5) Hematocrit 44.8% (36.0-47.0) 44.4% (36.0-47.0) Mean Corpuscular Volume 89fL (79-100) 90fL (79-100) Mean Corpuscular Hemoglobin 30pg (25-35) 29pg (25-35) Mean Corpuscular Hemoglobin Concent 33g/dL (31-37) 33g/dL (31-37) Red Cell Distribution Width 16.3% (11.5-14.5) 16.5% (11.5-14.5) Platelet Count 307x10^3/uL (140-400) 286x10^3/uL (140-400) Neutrophils (%) (Auto) 81% (31-73) 93% (31-73) Lymphocytes (%) (Auto) 13% (24-48) 6% (24-48) Monocytes (%) (Auto) 5% (0-9) 1% (0-9) Eosinophils (%) (Auto) 0% (0-3) 0% (0-3) Basophils (%) (Auto) 1% (0-3) 0% (0-3) Neutrophils # (Auto) 13.6x10^3uL (1.8-7.7) 14.7x10^3uL (1.8-7.7) Lymphocytes # (Auto) 2.2x10^3/uL (1.0-4.8) 0.9x10^3/uL (1.0-4.8) Monocytes # (Auto) 0.9x10^3/uL (0.0-1.1) 0.2x10^3/uL (0.0-1.1) Eosinophils # (Auto) 0.0x10^3/uL (0.0-0.7) 0.0x10^3/uL (0.0-0.7) Basophils # (Auto) 0.1x10^3/uL (0.0-0.2) 0.0x10^3/uL (0.0-0.2) Segmented Neutrophils % 79% (35-66) Band Neutrophils % 6% (0-9) Lymphocytes % 13% (24-48) Monocytes % 2% (0-10) Platelet Estimate Adequate (ADEQUATE) Sodium Level 134mmol/L (136-145) 133mmol/L (136-145) Potassium Level 4.6mmol/L (3.5-5.1) 4.7mmol/L (3.5-5.1) Chloride Level 98mmol/L (98-107) 97mmol/L (98-107) Carbon Dioxide Level 26mmol/L (21-32) 23mmol/L (21-32) Anion Gap 10 (6-14) 13 (6-14) Blood Urea Nitrogen 22mg/dL (7-20) 28mg/dL (7-20) Creatinine 1.1mg/dL (0.6-1.0) 1.1mg/dL (0.6-1.0) Estimated GFR (Cockcroft-Gault) 52.0 52.0 BUN/Creatinine Ratio 20 (6-20) Glucose Level 390mg/dL (70-99) 426mg/dL (70-99) Calcium Level 9.6mg/dL (8.5-10.1) 8.9mg/dL (8.5-10.1) Total Bilirubin 0.4mg/dL (0.2-1.0) Aspartate Amino Transf (AST/SGOT) 9U/L (15-37) Alanine Aminotransferase (ALT/SGPT) 20U/L (14-59) Alkaline Phosphatase 144U/L (46-116) Total Protein 8.0g/dL (6.4-8.2) Albumin 3.1g/dL (3.4-5.0) Albumin/Globulin Ratio 0.6 (1.0-1.7) Glucose (Fingerstick) 487mg/dL (70-99) Urine Collection Type Unknown Urine Color Yellow Urine Clarity Clear Urine pH 5.5 Urine Specific [place] >=1.030 Urine Protein Negativemg/dL (NEG-TRACE) Urine Glucose (UA) >=1000mg/dL (NEG) Urine Ketones (Stick) Negativemg/dL (NEG) Urine Blood Negative (NEG) Urine Nitrite Negative (NEG) Urine Bilirubin Negative (NEG) Urine Urobilinogen Dipstick 1.0mg/dL (0.2 mg/dL) Urine Leukocyte Esterase Negative (NEG) Urine RBC 0/HPF (0-2) Urine WBC 0/HPF (0-4) Urine Bacteria 0/HPF (0-FEW) Urine Test Negative (NEG) Test 11/09/16 05:54 11/09/16 07:29 11/09/16 10:48 Glucose (Fingerstick) 430mg/dL (70-99) 390mg/dL (70-99) 463mg/dL (70-99) Medications Current Medications Albuterol/ Ipratropium (Duoneb) 3 ml 1X ONCE NEB Last administered on 20:45; Start 11/08/16 at 21:00; Stop 11/08/16 at 21:01; Status DC Methylprednisolone Sodium Succinate (Solu-Medrol 125mg Vial) 125 mg 1X ONCE IM Last administered on 11/08/16 20:44; Start 11/08/16 at 21:00; Stop 11/08/16 at 21:01; Status DC Acetaminophen (Tylenol) 650 mg 1X ONCE PO Last administered on 11/08/16 21:14 ; Start 11/08/16 at 21:30; Stop 11/08/16 at 21:31; Status DC Albuterol Sulfate (Ventolin Neb Soln) 2.5 mg 1X ONCE NEB Last administered on 11/08/16 21:18; Start 11/08/16 at 21:15; Stop 11/08/16 at 21:19; Status DC Albuterol/ Ipratropium (Duoneb) 3 ml RTQID NEB ; Start 11/09/16 at 08:00; Stop 11/10/16 at 07:59; Status Cancel Azithromycin (Zithromax) 500 mg 1X ONCE PO Last administered on 11/09/16 00: 23; Start 11/08/16 at 22:30; Stop 11/08/16 at 22:31; Status DC Budesonide (Pulmicort) 0.5 mg 1X ONCE NEB Last administered on 11/09/16 07:43 ; Start 11/08/16 at 22:30; Stop 11/08/16 at 22:31; Status DC Budesonide (Pulmicort) 0.5 mg RTBID NEB ; Start 11/09/16 at 08:00 Albuterol/ Ipratropium (Duoneb) 3 ml RTQID NEB Last administered on 11/09/16 11:11; Start 11/09/16 at 08:00 Albuterol Sulfate (Ventolin Neb Soln) 2.5 mg PRN Q4HRS PRN NEB DYSPNEA; Start 11/08/16 at 22:15 Guaifenesin (Robitussin Dm) 10 ml PRN Q6HRS PRN PO COUGH; Start 11/08/16 at 22: 00 Chlorphenir/ Hydrocodone Polistirex (Tussionex) 5 ml PRN Q12HR PRN PO COUGH; Start 11/08/16 at 22:00; Stop 11/08/16 at 22:16; Status DC Prednisone (Prednisone) 60 mg DAILY08 PO Last administered on 11/09/16 08:08; Start 11/09/16 at 08:00 Benzonatate (Tessalon Perle) 100 mg PRN TID PRN PO COUGH; Start 11/08/16 at 23: 30 Non-Formulary Medication 1 puff PRN Q6HRS PRN INH SHORTNESS OF BREATH; Start at 23:30; Status UNV Insulin Detemir (Levemir) 15 units QHS SQ Last administered on 11/09/16 00:59 ; Start 11/08/16 at 23:45 Insulin Aspart (Novolog) 8 units TIDAC SQ Last administered on 11/09/16 07:30 ; Start 11/09/16 at 07:30 Insulin Aspart (Novolog) 15 units 1X ONCE SQ Last administered on 11/09/16 01 :00; Start 11/08/16 at 23:45; Stop 11/08/16 at 23:46; Status DC Insulin Aspart (Novolog) 0-9 UNITS TIDWMEALS SQ Last administered on 11/09/16 11:21; Start 11/09/16 at 08:00 Dextrose (Dextrose 50%-Water Syringe) 12.5 gm PRN Q15MIN PRN IV SEE COMMENTS; Start 11/08/16 at 23:30 Azithromycin 250 mg 250 mg DAILY PO Last administered on 11/09/16 08:08; Start 11/09/16 at 09:00 Sodium Chloride (Iv Sodium Chloride 0.45%) 1,000 ml @ 100 mls/hr 1X ONCE IV Last administered on 11/09/16 00:22; Start 11/08/16 at 23:30; Stop 11/09/16 at 09:29; Status DC Lisinopril (Prinivil) 40 mg DAILY PO Last administered on 11/09/16 08:09; Start 11/09/16 at 09:00 Nicotine (Nicoderm Cq 14mg) 1 patch PRN DAILY PRN TD SMOKING CESSATION Last administered on 11/09/16 08:12; Start 11/08/16 at 23:45 Insulin Aspart (Novolog) 16 units 1X ONCE SQ Last administered on 11/09/16 06 :18; Start 11/09/16 at 06:30; Stop 11/09/16 at 06:31; Status DC Active Scripts Active Proair Hfa Inhaler (Albuterol Sulfate) 8.5 Gm Hfa.aer.ad 1 Puff INH PRN Q6HRS PRN Zithromax (Azithromycin) 250 Mg Tablet 250 Mg PO DAILY Tessalon Perle (Benzonatate) 100 Mg Capsule 1 Cap PO TID PRN Naproxen 250 Mg Tablet 250 Mg PO BID PRN Vitals/I & O Vital Sign - Last 24 Hours 4/27/11/08/16 11/08/16 11/08/16 20:20 20:45 21:16 22:00 Temp 97.8 97.8 Pulse 80 78 Resp 26 20 B/P 140/63 Pulse Ox 96 98 O2 Delivery Room Air Room Air Room Air Room Air 11/08/16 11/09/16 11/09/16 11/09/16 23:00 02:56 03:00 07:00 Temp 98.0 98.4 98.4 98.0 98.4 98.4 Pulse 74 75 73 Resp 20 16 20 B/P 129/54 132/60 139/68 Pulse Ox 96 91 92 O2 Delivery Room Air Room Air 11/09/16 11/09/16 11/09/16 11/09/16 07:43 07:46 08:09 11:11 Pulse 73 B/P 139/68 Pulse Ox 93 93 91 O2 Delivery Room Air Room Air Room Air 11/09/16 11:18 Temp 98.0 98.0 Pulse 82 Resp 20 B/P 121/63 Pulse Ox 92 O2 Delivery Room Air MANISHA COLINDRES MD Nov 09, 2016 11:45
[2016-11-09] MEDS ORDERED: LEVO500T8 PO (12:25)
[2016-11-09] MEDS ORDERED: LISI40TA PO (12:27)
--- NOTE | 2016-11-09 14:11 | PDOC ---
PULMONARY PROGRESS NOTES Vitals Vital Signs Date Time Temp Pulse Resp B/P Pulse Ox O2 Delivery O2 Flow Rate FiO2 11/09/16 11:18 98.0 82 20 121/63 92 Room Air 98.0 Labs Laboratory Tests Test 11/08/16 22:00 11/09/16 00:27 11/09/16 01:00 11/09/16 04:55 White Blood Count 16.8x10^3/uL (4.0-11.0) 15.8x10^3/uL (4.0-11.0) Red Blood Count 5.04x10^6/uL (3.50-5.40) 4.95x10^6/uL (3.50-5.40) Hemoglobin 14.9g/dL (12.0-15.5) 14.4g/dL (12.0-15.5) Hematocrit 44.8% (36.0-47.0) 44.4% (36.0-47.0) Mean Corpuscular Volume 89fL (79-100) 90fL (79-100) Mean Corpuscular Hemoglobin 30pg (25-35) 29pg (25-35) Mean Corpuscular Hemoglobin Concent 33g/dL (31-37) 33g/dL (31-37) Red Cell Distribution Width 16.3% (11.5-14.5) 16.5% (11.5-14.5) Platelet Count 307x10^3/uL (140-400) 286x10^3/uL (140-400) Neutrophils (%) (Auto) 81% (31-73) 93% (31-73) Lymphocytes (%) (Auto) 13% (24-48) 6% (24-48) Monocytes (%) (Auto) 5% (0-9) 1% (0-9) Eosinophils (%) (Auto) 0% (0-3) 0% (0-3) Basophils (%) (Auto) 1% (0-3) 0% (0-3) Neutrophils # (Auto) 13.6x10^3uL (1.8-7.7) 14.7x10^3uL (1.8-7.7) Lymphocytes # (Auto) 2.2x10^3/uL (1.0-4.8) 0.9x10^3/uL (1.0-4.8) Monocytes # (Auto) 0.9x10^3/uL (0.0-1.1) 0.2x10^3/uL (0.0-1.1) Eosinophils # (Auto) 0.0x10^3/uL (0.0-0.7) 0.0x10^3/uL (0.0-0.7) Basophils # (Auto) 0.1x10^3/uL (0.0-0.2) 0.0x10^3/uL (0.0-0.2) Segmented Neutrophils % 79% (35-66) Band Neutrophils % 6% (0-9) Lymphocytes % 13% (24-48) Monocytes % 2% (0-10) Platelet Estimate Adequate (ADEQUATE) Sodium Level 134mmol/L (136-145) 133mmol/L (136-145) Potassium Level 4.6mmol/L (3.5-5.1) 4.7mmol/L (3.5-5.1) Chloride Level 98mmol/L (98-107) 97mmol/L (98-107) Carbon Dioxide Level 26mmol/L (21-32) 23mmol/L (21-32) Anion Gap 10 (6-14) 13 (6-14) Blood Urea Nitrogen 22mg/dL (7-20) 28mg/dL (7-20) Creatinine 1.1mg/dL (0.6-1.0) 1.1mg/dL (0.6-1.0) Estimated GFR (Cockcroft-Gault) 52.0 52.0 BUN/Creatinine Ratio 20 (6-20) Glucose Level 390mg/dL (70-99) 426mg/dL (70-99) Calcium Level 9.6mg/dL (8.5-10.1) 8.9mg/dL (8.5-10.1) Total Bilirubin 0.4mg/dL (0.2-1.0) Aspartate Amino Transf (AST/SGOT) 9U/L (15-37) Alanine Aminotransferase (ALT/SGPT) 20U/L (14-59) Alkaline Phosphatase 144U/L (46-116) Total Protein 8.0g/dL (6.4-8.2) Albumin 3.1g/dL (3.4-5.0) Albumin/Globulin Ratio 0.6 (1.0-1.7) Glucose (Fingerstick) 487mg/dL (70-99) Urine Collection Type Unknown Urine Color Yellow Urine Clarity Clear Urine pH 5.5 Urine Specific [place] >=1.030 Urine Protein Negativemg/dL (NEG-TRACE) Urine Glucose (UA) >=1000mg/dL (NEG) Urine Ketones (Stick) Negativemg/dL (NEG) Urine Blood Negative (NEG) Urine Nitrite Negative (NEG) Urine Bilirubin Negative (NEG) Urine Urobilinogen Dipstick 1.0mg/dL (0.2 mg/dL) Urine Leukocyte Esterase Negative (NEG) Urine RBC 0/HPF (0-2) Urine WBC 0/HPF (0-4) Urine Bacteria 0/HPF (0-FEW) Urine Test Negative (NEG) Test 11/09/16 05:54 11/09/16 07:29 11/09/16 10:48 Glucose (Fingerstick) 430mg/dL (70-99) 390mg/dL (70-99) 463mg/dL (70-99) Laboratory Tests Test 11/08/16 22:00 11/09/16 00:27 11/09/16 01:00 11/09/16 04:55 White Blood Count 16.8x10^3/uL (4.0-11.0) 15.8x10^3/uL (4.0-11.0) Red Blood Count 5.04x10^6/uL (3.50-5.40) 4.95x10^6/uL (3.50-5.40) Hemoglobin 14.9g/dL (12.0-15.5) 14.4g/dL (12.0-15.5) Hematocrit 44.8% (36.0-47.0) 44.4% (36.0-47.0) Mean Corpuscular Volume 89fL (79-100) 90fL (79-100) Mean Corpuscular Hemoglobin 30pg (25-35) 29pg (25-35) Mean Corpuscular Hemoglobin Concent 33g/dL (31-37) 33g/dL (31-37) Red Cell Distribution Width 16.3% (11.5-14.5) 16.5% (11.5-14.5) Platelet Count 307x10^3/uL (140-400) 286x10^3/uL (140-400) Neutrophils (%) (Auto) 81% (31-73) 93% (31-73) Lymphocytes (%) (Auto) 13% (24-48) 6% (24-48) Monocytes (%) (Auto) 5% (0-9) 1% (0-9) Eosinophils (%) (Auto) 0% (0-3) 0% (0-3) Basophils (%) (Auto) 1% (0-3) 0% (0-3) Neutrophils # (Auto) 13.6x10^3uL (1.8-7.7) 14.7x10^3uL (1.8-7.7) Lymphocytes # (Auto) 2.2x10^3/uL (1.0-4.8) 0.9x10^3/uL (1.0-4.8) Monocytes # (Auto) 0.9x10^3/uL (0.0-1.1) 0.2x10^3/uL (0.0-1.1) Eosinophils # (Auto) 0.0x10^3/uL (0.0-0.7) 0.0x10^3/uL (0.0-0.7) Basophils # (Auto) 0.1x10^3/uL (0.0-0.2) 0.0x10^3/uL (0.0-0.2) Segmented Neutrophils % 79% (35-66) Band Neutrophils % 6% (0-9) Lymphocytes % 13% (24-48) Monocytes % 2% (0-10) Platelet Estimate Adequate (ADEQUATE) Sodium Level 134mmol/L (136-145) 133mmol/L (136-145) Potassium Level 4.6mmol/L (3.5-5.1) 4.7mmol/L (3.5-5.1) Chloride Level 98mmol/L (98-107) 97mmol/L (98-107) Carbon Dioxide Level 26mmol/L (21-32) 23mmol/L (21-32) Anion Gap 10 (6-14) 13 (6-14) Blood Urea Nitrogen 22mg/dL (7-20) 28mg/dL (7-20) Creatinine 1.1mg/dL (0.6-1.0) 1.1mg/dL (0.6-1.0) Estimated GFR (Cockcroft-Gault) 52.0 52.0 BUN/Creatinine Ratio 20 (6-20) Glucose Level 390mg/dL (70-99) 426mg/dL (70-99) Calcium Level 9.6mg/dL (8.5-10.1) 8.9mg/dL (8.5-10.1) Total Bilirubin 0.4mg/dL (0.2-1.0) Aspartate Amino Transf (AST/SGOT) 9U/L (15-37) Alanine Aminotransferase (ALT/SGPT) 20U/L (14-59) Alkaline Phosphatase 144U/L (46-116) Total Protein 8.0g/dL (6.4-8.2) Albumin 3.1g/dL (3.4-5.0) Albumin/Globulin Ratio 0.6 (1.0-1.7) Glucose (Fingerstick) 487mg/dL (70-99) Urine Collection Type Unknown Urine Color Yellow Urine Clarity Clear Urine pH 5.5 Urine Specific [place] >=1.030 Urine Protein Negativemg/dL (NEG-TRACE) Urine Glucose (UA) >=1000mg/dL (NEG) Urine Ketones (Stick) Negativemg/dL (NEG) Urine Blood Negative (NEG) Urine Nitrite Negative (NEG) Urine Bilirubin Negative (NEG) Urine Urobilinogen Dipstick 1.0mg/dL (0.2 mg/dL) Urine Leukocyte Esterase Negative (NEG) Urine RBC 0/HPF (0-2) Urine WBC 0/HPF (0-4) Urine Bacteria 0/HPF (0-FEW) Urine Test Negative (NEG) Test 11/09/16 05:54 11/09/16 07:29 11/09/16 10:48 Glucose (Fingerstick) 430mg/dL (70-99) 390mg/dL (70-99) 463mg/dL (70-99) Medications Active Scripts Medications Dose Route/Sig Days Date Category Proair Hfa Inhaler (Albuterol Sulfate) 8.5 Gm Hfa.aer.ad 1 Puff INH PRN Q6HRS PRN 08/14/16 Rx Zithromax (Azithromycin) 250 Mg Tablet 250 Mg PO DAILY 08/14/16 Rx Tessalon Perle (Benzonatate) 100 Mg Capsule 1 Cap PO TID PRN 08/14/16 Rx Naproxen 250 Mg Tablet 250 Mg PO BID PRN 08/14/16 Rx Impression . NOTE DICTATED KEEGAN LOVING MD Nov 09, 2016 14:11
--- NOTE | 2016-11-10 02:24 | CONS ---
DATE OF CONSULTATION: 11/09/2016 ATTENDING PHYSICIAN: Dr. Bernadine Barnard. REASON FOR CONSULTATION: The patient is seen in pulmonary consultation at the request of Dr. Barnard for wheezing and shortness of air. HISTORY OF PRESENT ILLNESS: The patient is a 51-year-old that has been smoking all of her adult life presented with increasing shortness of breath, cough productive of discolored sputum, wheezing. She ran out of her albuterol. She has no money to afford her medications. She smokes on a daily basis. PAST MEDICAL HISTORY: Otherwise unremarkable except for diabetes. SOCIAL HISTORY: There is no history of asthma. She never had asthma prior to smoking. REVIEW OF SYSTEMS: As indicated above. CURRENT MEDICATIONS: Reviewed. PHYSICAL EXAMINATION: GENERAL: The patient was in no respiratory distress. She was tearful. She wanted to be discharged, was concerned about her family situation and finances. HEENT: Eyes closed, nonicteric. NECK: Jugular venous distention was not elevated. LUNGS: Expiratory wheeze. CARDIOVASCULAR: Regular rate and rhythm with S1, S2, no S3. ABDOMEN: Soft, nontender, nondistended. EXTREMITIES: No clubbing, cyanosis or edema. IMAGING: Chest x-ray was reviewed. There is some ill-defined infiltrate, ill-defined lung markings compatible with the possibility of pneumonitis. IMPRESSION: 1. Acute exacerbation of chronic obstructive pulmonary disease. 2. Possible pneumonitis. PLAN: The patient is discharged home with prednisone 30 mg x 5 days, antibiotic for 7 days, nurse will call pharmacy to find out, which is the least expensive of antibiotic to purchase in generic form. The patient to walk ____ to my office prior to going home and will be given samples of Spiriva and/or Combivent. The above was discussed with Dr. Waite. KEEGAN LOVING MD DR: FINN/sara JOB#: [id number] / [id number]
--- NOTE | 2016-11-15 18:06 | DS ---
DATE OF DISCHARGE: 11/09/2016 DISCHARGE DIAGNOSES: 1. Acute exacerbation of chronic obstructive pulmonary disease. 2. Pneumonitis. BRIEF HOSPITAL COURSE: A 51-year-old female patient admitted to the hospital for COPD exacerbation and during hospitalization, she received periodic nebulization and prednisone. Also she was evaluated by Dr. Kamara. The patient's symptoms improved with nebulization; however, she would like to go home as she is afraid and worried about her financial bill and Dr. Kamara provided some inhalers and bronchodilators and the patient has been sent home in stable condition with scripts, antibiotics and inhalers. The patient's blood sugars are not controlled. Her HbA1c is more than 12.4. She needs to be on insulin. Due to her financial status, her medications has been not started for diabetes. DISCHARGE EXAMINATION: GENERAL: Alert, oriented x 3. HEART: S1, S2 present. LUNGS: Anterior chest clear. ABDOMEN: Soft, nontender, no organomegaly. EXTREMITIES: No edema. DISCHARGE DISPOSITION: Home. DISCHARGE CONDITION: Stable. FOLLOWUP: With primary care doctor and she should be on medications for diabetes and also probably an insulin given her HbA1c. Total time spent for discharge is 31 minutes for patient education, counseling, and coordination of care. MANISHA COLINDRES MD DR: YAZ/sara JOB#: [id number] / [id number] [place]
== END 2016-11-09 15:30 | disposition home or self-care (01) | DRG 191 ==
LOC: ER 20:15 → 5 SOUTH 21:20
PROVIDERS: ADMIT Internal Medicine; ATTEND Internal Medicine
DX: J44.1 Chronic obstructive pulmonary disease with (acute) exacerbation (principal); J45.901 Unspecified asthma with (acute) exacerbation; E44.1 Mild protein-calorie malnutrition; J44.0 Chronic obstructive pulmonary disease with (acute) lower respiratory infection; J20.9 Acute bronchitis, unspecified; I25.10 Atherosclerotic heart disease of native coronary artery without angina pectoris; F32.9 Major depressive disorder, single episode, unspecified; I10 Essential (primary) hypertension; E11.42 Type 2 diabetes mellitus with diabetic polyneuropathy; E78.00 Pure hypercholesterolemia, unspecified; E66.9 Obesity, unspecified; E11.65 Type 2 diabetes mellitus with hyperglycemia; F17.210 Nicotine dependence, cigarettes, uncomplicated; Z88.2 Allergy status to sulfonamides; Z68.28 Body mass index [BMI] 28.0-28.9, adult; Z88.8 Allergy status to other drugs, medicaments and biological substances
CPT/HCPCS: 36415; 71020; 80048; 80053; 81001; 81025; 82947; 83036; 85007; 85027; 94250; 94640; 94760; 96372; J1815; J2930; J7512; J7620; Q0144; 99285-25

== ENCOUNTER 2017-04-09 18:16 | Emergency (ER) | payer SELFPAY ==
[~2017-04-09] VITALS: Ht 172.7 cm; Wt 80.7 kg
[~2017-04-09 18:16] MED LIST changes: +LEVO500T8 PO; +LISI40TA PO; -NAPR250T2 PO; +NAPR250T6 PO
[2017-04-09] MEDS ORDERED: MUPI15CR TP (19:07)
[2017-04-09] MEDS ORDERED: DOXY100C2 PO (19:07)
--- NOTE | 2017-04-09 19:07 | PHYS DOC ---
Past Medical History Past Medical History: Asthma, CAD, Depression, Diabetes-Type II, High Cholesterol, Hypertension, Other Additional Past Medical Histor: PERIPHERAL NEUROPATHY Past Surgical History: Additional Past Surgical Histo: CARPAL TUNNEL Alcohol Use: None Drug Use: None Adult General Chief Complaint Chief Complaint: INSECT BITE HPI HPI Patient is a 51 year old female resents to the emergency department stating that she called her signs area on her left hip that has been there for approximately 2 months. She states that she was bitten by something however she has been using antibiotic ointment over the area to try to help with healing. She states that the area started will smoke and is now the size of a quarter. It does have redness noted around the outside that appear to have a blister on the middle part. There is no drainage or discharge coming from the site. Patient is unsure when her last tetanus immunization occurred. She denies any fever, chills or any nausea or vomiting. Review of Systems Review of Systems Constitutional: Denies fever or chills [] Eyes: Denies change in visual acuity, redness, or eye pain [] HENT: Denies nasal congestion or sore throat [] Respiratory: Denies cough or shortness of breath [] Cardiovascular: No additional information not addressed in HPI [] GI: Denies abdominal pain, nausea, vomiting, bloody stools or diarrhea [] : Denies dysuria or hematuria [] Musculoskeletal: Denies back pain or joint pain [] Integument: Denies rash or skin lesions. Wound to the left hip Neurologic: Denies headache, focal weakness or sensory changes [] Endocrine: Denies polyuria or polydipsia [] Allergies Allergies Allergies Coded Allergies Type Severity Reaction Last Updated Verified Sulfa (Sulfonamide Antibiotics) Allergy Intermediate 11/08/16 Yes amoxicillin Allergy Intermediate RASH 11/08/16 Yes clavulanic acid Allergy Intermediate RASH 11/08/16 Yes hydrocodone Allergy Intermediate VOMITING 11/08/16 Yes Physical Exam Physical Exam Constitutional: Well developed, well nourished, no acute distress, non-toxic appearance. [] HENT: Normocephalic, atraumatic, bilateral external ears normal, oropharynx moist, no oral exudates, nose normal. [] Eyes: PERRLA, EOMI, conjunctiva normal, no discharge. [] Neck: Normal range of motion, no tenderness, supple, no stridor. [] Cardiovascular:Heart rate regular rhythm, no murmur [] Lungs & Thorax: Left breath sounds clear, right breath sounds with wheezes noted posteriorly Skin: Warm, dry, no erythema, no rash. Patient with quarter size wound that appears red with open blister noted over the area. No drainage or discharge noted from the site. Extremities: No tenderness, no cyanosis, no clubbing, ROM intact, no edema. [] Neurologic: Alert and oriented X 3, normal motor function, normal sensory function, no focal deficits noted. [] Psychologic: Affect normal, judgement normal, mood normal. [] Current Patient Data Vital Signs Vital Signs Date Time Temp Pulse Resp B/P (MAP) Pulse Ox O2 Delivery O2 Flow Rate FiO2 04/09/17 18:20 97.8 72 18 96 Room Air 97.8 EKG EKG [] Radiology/Procedures Radiology/Procedures [] Course & Med Decision Making Course & Med Decision Making Pertinent Labs and Imaging studies reviewed. (See chart for details) Patient will be updated with a tetanus immunization here in the emergency department. She'll be placed on doxycycline however the patient is concerned she may not be able to afford her medication. She was instructed to have the pharmacist: She is unable to obtain the medication and we could see if there are as alternatives. Patient is allergic to sulfa and penicillins. Patient will also be provided with a prescription for Bactroban to place over the area. Patient was encouraged to follow-up with a primary care physician in the next 5- 7 days. Patient will be discharged home in stable condition signs and symptoms to return back to emergency department has been provided. All questions and concerns have been answered at patients bedside. Dragon Disclaimer Dragon Disclaimer This electronic medical record was generated, in whole or in part, using a voice recognition dictation system. Departure Departure Impression: Primary Impression: Wound cellulitis Disposition: HOME, SELF-CARE Condition: STABLE Referrals: NO PCP (PCP) Patient Instructions: Wound Care, Bjam-[id number] Additional Instructions: Activity as tolerated. Medications as prescribed. Keep the area clean and dry. Wash area with soap and water twice a day and apply the medication as prescribed. Follow-up with primary care physician in the next 3-5 days. Return back to emergency prior signs symptoms of become worse. Scripts Doxycycline Hyclate (DOXYCYCLINE HYCLATE) 100 Mg Capsule 1 CAP PO BID, #20 CAP Prov: BRENDA WEBB APRN 04/09/17 Mupirocin Calcium (BACTROBAN CREAM) 15 Gm Cream..g. 1 ENRQIUE TP TID, #30 GM Prov: BRENDA WEBB APRN 04/09/17 BRENDA WEBB APRN Apr 09, 2017 19:07
[2017-04-09] MEDS ORDERED: DIPHTH,PERTUSS(ACELL),TET TOX 0.5 ML DISP.SYRIN. VAX IM ONE (19:15)
== END 2017-04-09 19:20 | disposition home or self-care (01) ==
LOC: ER 18:16
DX: L03.116 Cellulitis of left lower limb (principal); J45.909 Unspecified asthma, uncomplicated; I25.10 Atherosclerotic heart disease of native coronary artery without angina pectoris; E78.00 Pure hypercholesterolemia, unspecified; I10 Essential (primary) hypertension; E11.40 Type 2 diabetes mellitus with diabetic neuropathy, unspecified; Z88.2 Allergy status to sulfonamides; Z88.1 Allergy status to other antibiotic agents; Z88.5 Allergy status to narcotic agent; Z88.8 Allergy status to other drugs, medicaments and biological substances
CPT/HCPCS: 90471; 90715; 99283-25

== ENCOUNTER 2017-06-30 13:27 | Inpatient (IN) | payer SELFPAY ==
[~2017-06-30] VITALS: Ht 172.7 cm; Wt 75.1 kg
[~2017-06-30 13:27] MED LIST changes: +DOXY100C2 PO; +MUPI15CR TP
[2017-06-30] MEDS ORDERED: ASPIRIN 325 MG TABLET PO ONE (13:45)
[2017-06-30] MEDS ORDERED: ALBUTEROL SULFATE 2.5 MG/3 ML NEBU. NEB ONE (14:00)
[2017-06-30 14:21] LABS: BASO # 0.1 x10^3/uL (0.0-0.2); BASO % 1 % (0-3); EOS % 1 % (0-3); HEMATOCRIT 43.6 % (36.0-47.0); HEMOGLOBIN 14.6 g/dL (12.0-15.5); LYMPH # 2.4 x10^3/uL (1.0-4.8); LYMPH % 22 % (24-48); MEAN CORPUSCULAR HEMOGLOBIN 30 pg (25-35); MEAN CORPUSCULAR HGB CONC 34 g/dL (31-37); MEAN CORPUSCULAR VOLUME 89 fL (79-100); MONO % 4 % (0-9); NEUT % 72 % (31-73); PLATELET COUNT 303 x10^3/uL (140-400); RED CELL DISTRIBUTION WIDTH 17.2 % (11.5-14.5); WHITE BLOOD COUNT 11.1 x10^3/uL (4.0-11.0)
--- NOTE | 2017-06-30 14:24 | PHYS DOC ---
Past Medical History Past Medical History: Asthma, CAD, Depression, Diabetes-Type II, High Cholesterol, Hypertension, Other Additional Past Medical Histor: PERIPHERAL NEUROPATHY Past Surgical History: Additional Past Surgical Histo: CARPAL TUNNEL Alcohol Use: None Drug Use: None Adult General Chief Complaint Chief Complaint: CHEST PAIN HPI HPI Patient is a 51 year old female presents with chest pain. 51-year-old female past history of COPD. It says in the computer that she has a history coronary artery disease but she denies this. She presents with chest pain. It's midsternal radiating to the back. She has had some cough. No peripheral edema. She has some mild shortness of breath with it. It does not radiate to the shoulder and left arm. She is a history of diabetes. She takes lisinopril however this is for her diabetes as opposed hypertension. Currently the pain is moderate. There is a worsening component with cough. It is moderate 5 out of 10. Review of Systems Review of Systems Constitutional: Denies fever or chills Eyes: Denies change in visual acuity, redness, or eye pain HENT: Denies nasal congestion or sore throat Respiratory: cough,non productive Cardiovascular: No additional information not addressed in HPI GI: Denies abdominal pain, nausea, vomiting, bloody stools or diarrhea : Denies dysuria or hematuria Musculoskeletal: Denies back pain or joint pain; no leg pain Integument: Denies rash or skin lesions Neurologic: Denies headache, focal weakness or sensory changes Endocrine: Denies polyuria or polydipsia All other systems were reviewed and found to be within normal limits, except as documented in this note. Current Medications Current Medications Current Medications Medications (Trade) Dose Ordered Sig/Erica Start Time Stop Time Status Last Admin Dose Admin Acetaminophen (Tylenol) 500 mg PRN Q6HRS PRN 06/30/17 15:15 UNV Albuterol Sulfate (Ventolin Neb Soln) 2.5 mg 1X ONCE 06/30/17 14:00 06/30/17 14:01 DC 06/30/17 14:21 2.5 MG Aspirin (Alisha Aspirin) 325 mg 1X ONCE 06/30/17 13:45 06/30/17 13:46 DC 06/30/17 14:33 325 MG Benzonatate (Tessalon Perle) 100 mg TID PRN 06/30/17 15:15 UNV Lisinopril (Prinivil) 40 mg DAILY 07/01/17 09:00 UNV Morphine Sulfate 2 mg PRN Q15MIN PRN 06/30/17 13:45 07/01/17 13:44 06/30/17 14:33 2 MG Mupirocin (Bactroban) 1 roxi TID 06/30/17 21:00 UNV Naproxen (Naprosyn) 250 mg BID PRN 06/30/17 15:15 UNV Non-Formulary Medication 1 puff PRN Q6HRS PRN 06/30/17 15:15 UNV Ondansetron HCl (Zofran) 4 mg PRN Q6HRS PRN 06/30/17 15:15 UNV Allergies Allergies Allergies Coded Allergies Type Severity Reaction Last Updated Verified Sulfa (Sulfonamide Antibiotics) Allergy Intermediate 11/08/16 Yes amoxicillin Allergy Intermediate RASH 11/08/16 Yes clavulanic acid Allergy Intermediate RASH 11/08/16 Yes hydrocodone Allergy Intermediate VOMITING 11/08/16 Yes Physical Exam Physical Exam Constitutional: Well developed, well nourished, no acute distress, non-toxic appearance. HENT: Normocephalic, atraumatic, bilateral external ears normal, oropharynx moist, no oral exudates, nose normal. Eyes: PERRLA, EOMI, conjunctiva normal, no discharge. Neck: Normal range of motion, no tenderness, supple, no stridor. Cardiovascular:Heart rate regular rhythm, no murmur Lungs & Thorax: Mild diffuse wheezing and rhonchi with good air movement. Abdomen: Bowel sounds normal, soft, no tenderness, no masses, no pulsatile masses. Skin: Warm, dry, no erythema, no rash. Back: No tenderness, no CVA tenderness. Extremities: No tenderness, no cyanosis, no clubbing, ROM intact, no edema. Neurologic: Alert and oriented X 3, normal motor function, normal sensory function, no focal deficits noted. Psychologic: Affect normal, judgement normal, mood normal. Current Patient Data Vital Signs Vital Signs Date Time Temp Pulse Resp B/P (MAP) Pulse Ox O2 Delivery O2 Flow Rate FiO2 06/30/17 14:35 75 18 100/58 (72) 96 Room Air 06/30/17 13:40 98.0 98.0 Lab Values Laboratory Tests Test 06/30/17 14:00 White Blood Count 11.1 x10^3/uL (4.0-11.0) H Red Blood Count 4.90 x10^6/uL (3.50-5.40) Hemoglobin 14.6 g/dL (12.0-15.5) Hematocrit 43.6 % (36.0-47.0) Mean Corpuscular Volume 89 fL (79-100) Mean Corpuscular Hemoglobin 30 pg (25-35) Mean Corpuscular Hemoglobin Concent 34 g/dL (31-37) Red Cell Distribution Width 17.2 % (11.5-14.5) H Platelet Count 303 x10^3/uL (140-400) Neutrophils (%) (Auto) 72 % (31-73) Lymphocytes (%) (Auto) 22 % (24-48) L Monocytes (%) (Auto) 4 % (0-9) Eosinophils (%) (Auto) 1 % (0-3) Basophils (%) (Auto) 1 % (0-3) Neutrophils # (Auto) 8.0 x10^3uL (1.8-7.7) H Lymphocytes # (Auto) 2.4 x10^3/uL (1.0-4.8) Monocytes # (Auto) 0.5 x10^3/uL (0.0-1.1) Eosinophils # (Auto) 0.1 x10^3/uL (0.0-0.7) Basophils # (Auto) 0.1 x10^3/uL (0.0-0.2) Sodium Level 138 mmol/L (136-145) Potassium Level 4.1 mmol/L (3.5-5.1) Chloride Level 102 mmol/L (98-107) Carbon Dioxide Level 27 mmol/L (21-32) Anion Gap 9 (6-14) Blood Urea Nitrogen 17 mg/dL (7-20) Creatinine 0.9 mg/dL (0.6-1.0) Estimated GFR (Cockcroft-Gault) 65.5 BUN/Creatinine Ratio 19 (6-20) Glucose Level 328 mg/dL (70-99) H Calcium Level 8.8 mg/dL (8.5-10.1) Total Bilirubin 0.3 mg/dL (0.2-1.0) Aspartate Amino Transferase (AST) 19 U/L (15-37) Alanine Aminotransferase (ALT) 26 U/L (14-59) Alkaline Phosphatase 107 U/L (46-116) Troponin I Quantitative 1.014 ng/mL (0.000-0.055) DF-Trs-N-Type Natriuretic Peptide 1831 pg/mL (0-124) H Total Protein 7.0 g/dL (6.4-8.2) Albumin 3.2 g/dL (3.4-5.0) L Albumin/Globulin Ratio 0.8 (1.0-1.7) L Laboratory Tests 06/30/17 14:00 Laboratory Tests 06/30/17 14:00 EKG EKG []Normal sinus rhythm, RSR'. No STEMI or acute ischemic changes. Interpreted by me at 1345 Radiology/Procedures Radiology/Procedures [] Course & Med Decision Making Course & Med Decision Making Pertinent Labs and Imaging studies reviewed. (See chart for details) We'll do a workup for cardiac. Given that the pain radiates through to the back also do a CT of the chest. I'm not certain if this is related to her cough, COPD exacerbation, aortic dissection, PE or acute coronary syndrome. We'll initiate workup. Patient has a positive troponin. She has gotten aspirin. D/w Dr. Rachel who recommends heparin and CCU admit. I will get CT scan result of chest back first to exclude contraindication. Admit to CCU in stable condition. D/W Dr. Cage who will admit. Dx: Chest pain, elevated troponin. Patient is admitted to the CCU. Will wait for CT scan results to begin heparin. Dr. Farley will follow up on these results and communicate with Dr. Cage (regarding CTA results and if ok to begin heparin). Dragon Disclaimer Dragon Disclaimer This electronic medical record was generated, in whole or in part, using a voice recognition dictation system. Departure Departure Impression: Primary Impression: Chest pain Additional Impression: Elevated troponin Disposition: ADMITTED INPATIENT Condition: STABLE Referrals: NO PCP (PCP) Problem Qualifiers SEGUNDO BARNEY MD Jun 30, 2017 14:24
[2017-06-30] MEDS: MORPHINE SULFATE 2 MG/ML DISP.SYRIN. IV/SQ PRN ×2 (14:33→15:07)
[2017-06-30 14:40] LABS: CALCIUM 8.8 mg/dL (8.5-10.1); CREATININE 0.9 mg/dL (0.6-1.0); GFR 65.5; POTASSIUM 4.1 mmol/L (3.5-5.1)
--- NOTE | 2017-06-30 14:43 | RAD ---
Single view chest 06/30/2017 Clinical indication: Chest pain. Comparison: 11/08/2016 chest Findings: Cardiac and mediastinal silhouettes are unremarkable. No pleural effusion, pneumothorax or focal consolidation. Impression: No acute cardiopulmonary abnormality.
[2017-06-30 14:46] LABS: ALBUMIN 3.2 g/dL (3.4-5.0); ALBUMIN/GLOBULIN RATIO 0.8 (1.0-1.7); TOTAL BILIRUBIN 0.3 mg/dL (0.2-1.0)
[2017-06-30] MEDS ORDERED: ONDANSETRON PF 4 MG/2 ML VIAL. IV PRN (15:15)
[2017-06-30] MEDS ORDERED: NAPROXEN 250 MG TABLET PO PRN (15:15)
[2017-06-30] MEDS ORDERED: BENZONATATE 100 MG CAPSULE. PO PRN (15:15)
[2017-06-30] MEDS ORDERED: CONTRAST GIVEN MC PRN (15:30)
[2017-06-30] MEDS ORDERED: IOHEXOL 300 MG/ML 100ML VIAL. IV ONE (15:30)
[2017-06-30] MEDS ORDERED: ALBUTEROL SULFATE 2.5 MG/3 ML NEBU. NEB PRN (16:15)
--- NOTE | 2017-06-30 16:18 | RAD ---
CT chest without, CTA chest with 06/30/2017 Clinical indication: Chest pain, radiation to the back. Comparison: None. Technique: Multiple CT images of the chest were obtained without contrast. Additional CTA images of the chest were obtained with contrast following 100 mL of intravenous Omnipaque 300. MIPS were obtained of the chest. RS Compliance Statement: One or more of the following individualized dose reduction techniques were utilized for this examination: 1. Automated exposure control 2. Adjustment of the mA and/or kV according to patient size 3. Use of iterative reconstruction technique Findings: The thoracic aorta is normal in caliber with mild scattered calcified atheromatous disease. No evidence of mediastinal hematoma or intramural hematoma on the noncontrast images. There is poor contrast timing of the thoracic aorta. There is no evidence of dissection in the mid ascending, aortic arch or proximal descending thoracic aorta, however incomplete evaluation of the distal descending thoracic aorta. There is mild atheromatous disease at the origins of the great vessels, patent. Examination is nondiagnostic for evaluation of the pulmonary arteries. Heart size is normal without significant pericardial effusion. Dense mitral annular calcifications are noted. No axillary, mediastinal or hilar lymphadenopathy. The central airways are patent. There are diffuse bilateral centrilobular groundglass nodules. There is mosaic attenuation in both lungs. There is mild upper lobe dominant paraseptal emphysema. No pleural effusion or pneumothorax. There are no destructive osseous lesions. Limited images of the upper abdomen: Grossly unremarkable. Impression: 1. Poor contrast timing with out evidence of acute thoracic aortic injury. 2. Examination is not optimized for evaluation of the pulmonary arteries. 3. Diffuse centrilobular groundglass nodules most commonly seen with respiratory bronchiolitis. Correlation with tobacco use is recommended. Additional considerations include infectious bronchiolitis or hypersensitivity pneumonitis. 4. Mosaic attenuation of the lungs most commonly seen with small airways disease.
[2017-06-30 16:35] VITALS: BP 107/44
[2017-06-30] MEDS ORDERED: HEPARIN 25,000UTS/500ML PREMIX 500 ML IV PRN (16:45)
[2017-06-30] MEDS ORDERED: ANTI-COAG MONITOR BY PHARMACY. MC PRN (16:45)
[2017-06-30] MEDS ORDERED: diphenhydrAMINE HCL 25 MG CAPSULE PO PRN (17:00)
[2017-06-30] MEDS ORDERED: DEXTROSE 50% 25 GM / 50ML DISP.SYRIN. IV PRN ×2 (17:00→20:00)
[2017-06-30] MEDS: INSULIN ASPART 300 UNITS/3 ML INSULN.PEN SQ SCH (17:00)
[2017-06-30] MEDS ORDERED: MORPHINE SULFATE 2 MG/ML DISP.SYRIN. IV PRN (17:00)
[2017-06-30] MEDS ORDERED: AZITHROMYCIN 250 MG TABLET. PO ONE (17:00)
[2017-06-30] MEDS ORDERED: HYDR12.58 PO (17:06)
[2017-06-30] MEDS ORDERED: CITA40TA5 PO (17:06)
[2017-06-30] MEDS ORDERED: GABA600T2 PO (17:06)
[2017-06-30] MEDS ORDERED: ATOR40TA59 PO (17:06)
[2017-06-30] MEDS ORDERED: GLIP5TAB10 PO (17:06)
[2017-06-30] MEDS ORDERED: SITA25TA PO (17:06)
[2017-06-30] MEDS ORDERED: METF-620 PO (17:06)
--- NOTE | 2017-06-30 17:08 | PDOC1 ---
History and Physical Date of Admission Date of Admission DATE: 06/30/17 TIME: 17:03 Identification/Chief Complaint Chief Complaint Chest pain Problems: Source Source: Caregiver, Chart review, Patient History of Present Illness History of Present Illness 31-year-old female, who unfortunately still smokes, pack a day, intermittent chest pain off and on about 2-3 days now. Described as across the chest left to right. No radiation, no jaw involvement, no upper extremity involvement. It did radiate to the back, was worse today 10 out of 10 hence came to the emergency room. At the emergency room troponin 1, EKG RSR prime pattern. CAT scan of the chest was done to rule out any dissection was negative except for some emphysematous lung and bronchitis changes. She does admit to some URI symptoms namely runny nose some mild dry cough. No fevers no recent travels. WBC is slightly elevated at 11.1 hemoglobin okay, platelets 303. PCP unasssigned, Patient admitted, heparin drip to start and cardiology to see. Patient has history of diabetes on oral Hypoglycemics, with hemoglobin A1c of 14. Lost insurance has has been out of medications for past 3 or 4 months. Other history is asthma/COPD. No known personal history of CAD. Family history of CAD but greater than 55 years of age Past Medical History Cardiovascular: HTN Pulmonary: Asthma Infectious disease: No pertinent hx Endocrine: Diabetes Past Surgical History Past Surgical History: No pertinent history Family History Family History: No Significant, High Cholestrol, Hypertension Social History Smoke: 1 pack per day ALCOHOL: none Drugs: None Current Problem List Problem List Problems Medical Problems: (1) Chest pain Status: Acute (2) Elevated troponin Status: Acute Problems: Current Medications Current Medications Current Medications Morphine Sulfate 2 mg PRN Q15MIN PRN IV/SQ PAIN GREATER THAN 3/10 Last administered on 06/30/17 15:07; Start 06/30/17 at 13:45; Stop 07/01/17 at 13 :44 Aspirin (Alisha Aspirin) 325 mg 1X ONCE PO Last administered on 06/30/17 14: 33; Start 06/30/17 at 13:45; Stop 06/30/17 at 13:46; Status DC Albuterol Sulfate (Ventolin Neb Soln) 2.5 mg 1X ONCE NEB Last administered on 06/30/17 14:21; Start 06/30/17 at 14:00; Stop 06/30/17 at 14:01; Status DC Benzonatate (Tessalon Perle) 100 mg PRN TID PRN PO COUGH; Start 06/30/17 at 15 :15 Lisinopril (Prinivil) 40 mg DAILY PO ; Start 07/01/17 at 09:00 Mupirocin (Bactroban) 1 erika TID TP ; Start 06/30/17 at 21:00 Naproxen (Naprosyn) 250 mg PRN BID PRN PO PAIN/INFLAMMATION; Start 06/30/17 at 15:15 Albuterol Sulfate (Ventolin Neb Soln) 2.5 mg PRN Q6HRS PRN NEB SHORTNESS OF BREATH; Start 06/30/17 at 16:15 Ondansetron HCl (Zofran) 4 mg PRN Q6HRS PRN IV NAUSEA/VOMITING; Start at 15:15 Acetaminophen (Tylenol) 500 mg PRN Q6HRS PRN PO MILD PAIN / TEMP; Start at 15:15 Iohexol (Omnipaque 300 Mg/ml) 100 ml 1X ONCE IV Last administered on t 15:54; Start 06/30/17 at 15:30; Stop 06/30/17 at 15:31; Status DC Info (Do NOT chart on this entry -- for MONITORING) 1 each PRN DAILY PRN MC SEE COMMENTS; Start 06/30/17 at 15:30; Stop 07/02/17 at 15:29 Heparin Sodium/ Dextrose 500 ml @ 0 mls/hr CONT PRN IV SEE I/O RECORD; Start 06/30/17 at 16:45 Heparin Sodium (Porcine) (Heparin Sodium) 2,000 unit PRN Q6HRS PRN IV FOR UFH LEVEL LESS THAN 0.2; Start 06/30/17 at 16:45 Info (Anti-Coagulation Monitoring By Pharmacy) 1 each PRN DAILY PRN MC SEE COMMENTS; Start 06/30/17 at 16:45 Active Scripts Active Doxycycline Hyclate 100 Mg Capsule 1 Cap PO BID Bactroban Cream (Mupirocin) 15 Gm Cream..g. 1 Erika TP TID Lisinopril 40 Mg Tablet 40 Mg PO DAILY Levofloxacin 500 Mg Tablet 500 Mg PO DAILY Proair Hfa Inhaler (Albuterol Sulfate) 8.5 Gm Hfa.aer.ad 1 Puff INH PRN Q6HRS PRN Tessalon Perle (Benzonatate) 100 Mg Capsule 1 Cap PO TID PRN Naproxen 250 Mg Tablet 250 Mg PO BID PRN Allergies Allergies: Coded Allergies: Sulfa (Sulfonamide Antibiotics) (Verified Allergy, Intermediate, 11/08/16) amoxicillin (Verified Allergy, Intermediate, RASH, 11/08/16) clavulanic acid (Verified Allergy, Intermediate, RASH, 11/08/16) hydrocodone (Verified Allergy, Intermediate, VOMITING, 11/08/16) ROS Review of System Chest pain, as per history of present illness The rest of 14 point systems reviewed otherwise negative Physical Exam Physical Exam Physical Exam General: Alert, Oriented X3, Cooperative, No acute distress HEENT: Atraumatic, PERRLA Lungs: Normal air movement, Other (wheezy) Heart: S1S2, RRR, no thrills, no gallops, no murmurs Cardiovascular: S1, S2 Abdomen: Normal bowel sounds, Soft, No tenderness, No hepatosplenomegaly, No masses, Other (obese) Rectal Exam: not examined PELVIC: Nml ext genitalia Extremities: No rashes, no edema, pulses full and equal Skin: No rashes, No breakdown, No significant lesion Neuro: Normal gait, Normal speech, Strength at 5/5 X4 ext, Normal tone, Sensation intact, Cranial nerves 3-12 NL, Reflexes 2+ Psych/Mental Status: Mental status NL, Mood NL Vitals Vitals Vital Signs Date Time Temp Pulse Resp B/P (MAP) Pulse Ox O2 Delivery O2 Flow Rate FiO2 06/30/17 15:40 85 18 147/72 (97) 97 Room Air 06/30/17 13:40 98.0 98.0 Labs Labs Laboratory Tests Test 06/30/17 14:00 White Blood Count 11.1 x10^3/uL (4.0-11.0) Red Blood Count 4.90 x10^6/uL (3.50-5.40) Hemoglobin 14.6 g/dL (12.0-15.5) Hematocrit 43.6 % (36.0-47.0) Mean Corpuscular Volume 89 fL (79-100) Mean Corpuscular Hemoglobin 30 pg (25-35) Mean Corpuscular Hemoglobin Concent 34 g/dL (31-37) Red Cell Distribution Width 17.2 % (11.5-14.5) Platelet Count 303 x10^3/uL (140-400) Neutrophils (%) (Auto) 72 % (31-73) Lymphocytes (%) (Auto) 22 % (24-48) Monocytes (%) (Auto) 4 % (0-9) Eosinophils (%) (Auto) 1 % (0-3) Basophils (%) (Auto) 1 % (0-3) Neutrophils # (Auto) 8.0 x10^3uL (1.8-7.7) Lymphocytes # (Auto) 2.4 x10^3/uL (1.0-4.8) Monocytes # (Auto) 0.5 x10^3/uL (0.0-1.1) Eosinophils # (Auto) 0.1 x10^3/uL (0.0-0.7) Basophils # (Auto) 0.1 x10^3/uL (0.0-0.2) Sodium Level 138 mmol/L (136-145) Potassium Level 4.1 mmol/L (3.5-5.1) Chloride Level 102 mmol/L (98-107) Carbon Dioxide Level 27 mmol/L (21-32) Anion Gap 9 (6-14) Blood Urea Nitrogen 17 mg/dL (7-20) Creatinine 0.9 mg/dL (0.6-1.0) Estimated GFR (Cockcroft-Gault) 65.5 BUN/Creatinine Ratio 19 (6-20) Glucose Level 328 mg/dL (70-99) Calcium Level 8.8 mg/dL (8.5-10.1) Total Bilirubin 0.3 mg/dL (0.2-1.0) Aspartate Amino Transf (AST/SGOT) 19 U/L (15-37) Alanine Aminotransferase (ALT/SGPT) 26 U/L (14-59) Alkaline Phosphatase 107 U/L (46-116) Troponin I Quantitative 1.014 ng/mL (0.000-0.055) YR-Mzd-H-Type Natriuretic Peptide 1831 pg/mL (0-124) Total Protein 7.0 g/dL (6.4-8.2) Albumin 3.2 g/dL (3.4-5.0) Albumin/Globulin Ratio 0.8 (1.0-1.7) Laboratory Tests Test 06/30/17 14:00 White Blood Count 11.1 x10^3/uL (4.0-11.0) Red Blood Count 4.90 x10^6/uL (3.50-5.40) Hemoglobin 14.6 g/dL (12.0-15.5) Hematocrit 43.6 % (36.0-47.0) Mean Corpuscular Volume 89 fL (79-100) Mean Corpuscular Hemoglobin 30 pg (25-35) Mean Corpuscular Hemoglobin Concent 34 g/dL (31-37) Red Cell Distribution Width 17.2 % (11.5-14.5) Platelet Count 303 x10^3/uL (140-400) Neutrophils (%) (Auto) 72 % (31-73) Lymphocytes (%) (Auto) 22 % (24-48) Monocytes (%) (Auto) 4 % (0-9) Eosinophils (%) (Auto) 1 % (0-3) Basophils (%) (Auto) 1 % (0-3) Neutrophils # (Auto) 8.0 x10^3uL (1.8-7.7) Lymphocytes # (Auto) 2.4 x10^3/uL (1.0-4.8) Monocytes # (Auto) 0.5 x10^3/uL (0.0-1.1) Eosinophils # (Auto) 0.1 x10^3/uL (0.0-0.7) Basophils # (Auto) 0.1 x10^3/uL (0.0-0.2) Sodium Level 138 mmol/L (136-145) Potassium Level 4.1 mmol/L (3.5-5.1) Chloride Level 102 mmol/L (98-107) Carbon Dioxide Level 27 mmol/L (21-32) Anion Gap 9 (6-14) Blood Urea Nitrogen 17 mg/dL (7-20) Creatinine 0.9 mg/dL (0.6-1.0) Estimated GFR (Cockcroft-Gault) 65.5 BUN/Creatinine Ratio 19 (6-20) Glucose Level 328 mg/dL (70-99) Calcium Level 8.8 mg/dL (8.5-10.1) Total Bilirubin 0.3 mg/dL (0.2-1.0) Aspartate Amino Transf (AST/SGOT) 19 U/L (15-37) Alanine Aminotransferase (ALT/SGPT) 26 U/L (14-59) Alkaline Phosphatase 107 U/L (46-116) Troponin I Quantitative 1.014 ng/mL (0.000-0.055) XN-Zna-V-Type Natriuretic Peptide 1831 pg/mL (0-124) Total Protein 7.0 g/dL (6.4-8.2) Albumin 3.2 g/dL (3.4-5.0) Albumin/Globulin Ratio 0.8 (1.0-1.7) VTE Prophylaxis Ordered VTE Prophylaxis Devices: Yes VTE Pharmacological Prophylaxi: Yes Assessment/Plan Assessment/Plan Chest pain differential includes ACS, RSR prime pattern, diabetes type 2 uncontrolled, hemoglobin A1c 14 Asthma/COPD, current smoker acute bronchitis Plan: Admit 2 mN CVC Start by mouth azithromycin for acute bronchitis cycle cardiac enzymes, heparin drip as discussed with cardiology Sliding-scale insulin Nicotine patch when necessary Resume home meds Monitor leukocytosis BNP is 1830 DuoNeb's when necessary, cough medicine when necessary The rest of the other recommendations pending above course Discussed with RN MOMO Cabrera MD Jun 30, 2017 17:08
[2017-06-30] MEDS ORDERED: traMADol 50 MG TABLET PO PRN (17:15)
[2017-06-30] MEDS: HEPARIN for IV BOLUS 10,000 UNIT/10 ML VIAL. IV PRN (17:32)
[2017-06-30 17:43] LABS: CHOLESTEROL/HDL RATIO 3.7
[2017-06-30 19:45] VITALS: BP 115/55
[2017-06-30] MEDS: GABAPENTIN 300 MG CAPSULE. PO SCH (21:35)
[2017-06-30] MEDS: MUPIROCIN 2 % TOPICAL CREAM 15GM TUBE. TP SCH (21:37)
[2017-06-30 23:35] VITALS: BP 146/68
[2017-07-01] VITALS (13 sets, daily range): BP systolic 93–161; BP diastolic 47–76
[2017-07-01] MEDS: HEPARIN for IV BOLUS 10,000 UNIT/10 ML VIAL. IV PRN ×2 (00:09→10:18)
[2017-07-01 04:43] LABS: BASO % 0 % (0-3); EOS % 1 % (0-3); HEMATOCRIT 43.2 % (36.0-47.0); HEMOGLOBIN 14.3 g/dL (12.0-15.5); LYMPH # 3.3 x10^3/uL (1.0-4.8); LYMPH % 29 % (24-48); MEAN CORPUSCULAR HEMOGLOBIN 29 pg (25-35); MEAN CORPUSCULAR HGB CONC 33 g/dL (31-37); MEAN CORPUSCULAR VOLUME 89 fL (79-100); MONO % 5 % (0-9); NEUT % 65 % (31-73); PLATELET COUNT 274 x10^3/uL (140-400); RED BLOOD COUNT 4.86 x10^6/uL (3.50-5.40); RED CELL DISTRIBUTION WIDTH 17.2 % (11.5-14.5); WHITE BLOOD COUNT 11.3 x10^3/uL (4.0-11.0)
[2017-07-01 05:11] LABS: ALBUMIN 3.3 g/dL (3.4-5.0); CALCIUM 8.3 mg/dL (8.5-10.1); CREATININE 0.6 mg/dL (0.6-1.0); GFR 104.6; POTASSIUM 4.2 mmol/L (3.5-5.1); TOTAL BILIRUBIN 0.3 mg/dL (0.2-1.0); TOTAL PROTEIN 6.5 g/dL (6.4-8.2)
--- NOTE | 2017-07-01 06:14 | EKG ---
[facility] [address] [place] [address] Test Date: 2017-06-30 Test Time: 13:43:55 Pat Name: LEONARDO MICHAELS Department: Room: 263 1 Gender: F Sole Stapler Welt: GAYLA : 1965 Requested By: SEGUNDO BARNEY Order Number: [id number] Reading MD: Reynaldo Lino Measurements Intervals [place] Rate: 67 P: 42 AK: 160 QRS: -27 QRSD: 126 T: 60 QT: 416 QTc: 443 Interpretive Statements SINUS RHYTHM LEFTWARD AXIS RIGHT BUNDLE BRANCH BLOCK RVH WITH REPOLARIZATION ABNORMALITY ABNORMAL ECG RI6.01 No previous ECG available for comparison Electronically Signed On 07-12-2017 15:36:04 SENIOR MAINTENANCE MACHINIST by Reynaldo Lino
[2017-07-01] MEDS: INSULIN ASPART 300 UNITS/3 ML INSULN.PEN SQ SCH ×3 (08:00→18:44)
[2017-07-01] MEDS ORDERED: INSULIN ASPART 300 UNITS/3 ML INSULN.PEN SQ SCH (08:00)
--- NOTE | 2017-07-01 08:45 | PDOC ---
PROGRESS NOTES Chief Complaint Chief Complaint NSTEMI, trop peaked at 18 RSR prime pattern, diabetes type 2 uncontrolled, hemoglobin A1c 14 Asthma/COPD, current smoker acute bronchitis History of Present Illness History of Present Illness No chest pain, no overnight calls Troponin peaked at 18, this morning trop 15 Vital signs remained stable On heparin drip Also on by mouth antibiotic azithromycin for some leukocytosis, acute bronchitis clinically Plan: Nothing by mouth now, will need an LHC Continue sliding scale insulin and the rest of the meds Vitals Vitals Vital Signs Date Time Temp Pulse Resp B/P (MAP) Pulse Ox O2 Delivery O2 Flow Rate FiO2 07/01/17 03:50 98.2 68 18 146/64 (91) 93 Room Air 98.2 Physical Exam General: Alert, Oriented X3, Cooperative Heart: Regular rate Lungs: Wheezing Abdomen: Normal bowel sounds Extremities: No clubbing, No cyanosis Skin: No rashes, No breakdown Labs LABS Laboratory Tests Test 06/30/17 14:00 06/30/17 16:40 06/30/17 20:10 06/30/17 20:30 White Blood Count 11.1 x10^3/uL (4.0-11.0) Red Blood Count 4.90 x10^6/uL (3.50-5.40) Hemoglobin 14.6 g/dL (12.0-15.5) Hematocrit 43.6 % (36.0-47.0) Mean Corpuscular Volume 89 fL (79-100) Mean Corpuscular Hemoglobin 30 pg (25-35) Mean Corpuscular Hemoglobin Concent 34 g/dL (31-37) Red Cell Distribution Width 17.2 % (11.5-14.5) Platelet Count 303 x10^3/uL (140-400) Neutrophils (%) (Auto) 72 % (31-73) Lymphocytes (%) (Auto) 22 % (24-48) Monocytes (%) (Auto) 4 % (0-9) Eosinophils (%) (Auto) 1 % (0-3) Basophils (%) (Auto) 1 % (0-3) Neutrophils # (Auto) 8.0 x10^3uL (1.8-7.7) Lymphocytes # (Auto) 2.4 x10^3/uL (1.0-4.8) Monocytes # (Auto) 0.5 x10^3/uL (0.0-1.1) Eosinophils # (Auto) 0.1 x10^3/uL (0.0-0.7) Basophils # (Auto) 0.1 x10^3/uL (0.0-0.2) Sodium Level 138 mmol/L (136-145) Potassium Level 4.1 mmol/L (3.5-5.1) Chloride Level 102 mmol/L (98-107) Carbon Dioxide Level 27 mmol/L (21-32) Anion Gap 9 (6-14) Blood Urea Nitrogen 17 mg/dL (7-20) Creatinine 0.9 mg/dL (0.6-1.0) Estimated GFR (Cockcroft-Gault) 65.5 BUN/Creatinine Ratio 19 (6-20) Glucose Level 328 mg/dL (70-99) Calcium Level 8.8 mg/dL (8.5-10.1) Total Bilirubin 0.3 mg/dL (0.2-1.0) Aspartate Amino Transf (AST/SGOT) 19 U/L (15-37) Alanine Aminotransferase (ALT/SGPT) 26 U/L (14-59) Alkaline Phosphatase 107 U/L (46-116) Troponin I Quantitative 1.014 ng/mL (0.000-0.055) 15.506 ng/mL (0.000-0.055) XD-Xdk-W-Type Natriuretic Peptide 1831 pg/mL (0-124) Total Protein 7.0 g/dL (6.4-8.2) Albumin 3.2 g/dL (3.4-5.0) Albumin/Globulin Ratio 0.8 (1.0-1.7) Triglycerides Level 108 mg/dL (0-150) Cholesterol Level 138 mg/dL (0-200) LDL Cholesterol, Calculated 79 mg/dL (0-100) VLDL Cholesterol, Calculated 22 mg/dL (0-40) Non-HDL Cholesterol Calculated 101 mg/dL (0-129) HDL Cholesterol 37 mg/dL (40-60) Cholesterol/HDL Ratio 3.7 Glucose (Fingerstick) 122 mg/dL (70-99) Heparin Anti-Xa Act, Unfractionated < 0.10 IU/mL (0.30-0.70) Test 06/30/17 20:48 07/01/17 03:05 07/01/17 06:00 07/01/17 07:45 Glucose (Fingerstick) 77 mg/dL (70-99) 196 mg/dL (70-99) White Blood Count 11.3 x10^3/uL (4.0-11.0) Red Blood Count 4.86 x10^6/uL (3.50-5.40) Hemoglobin 14.3 g/dL (12.0-15.5) Hematocrit 43.2 % (36.0-47.0) Mean Corpuscular Volume 89 fL (79-100) Mean Corpuscular Hemoglobin 29 pg (25-35) Mean Corpuscular Hemoglobin Concent 33 g/dL (31-37) Red Cell Distribution Width 17.2 % (11.5-14.5) Platelet Count 274 x10^3/uL (140-400) Neutrophils (%) (Auto) 65 % (31-73) Lymphocytes (%) (Auto) 29 % (24-48) Monocytes (%) (Auto) 5 % (0-9) Eosinophils (%) (Auto) 1 % (0-3) Basophils (%) (Auto) 0 % (0-3) Neutrophils # (Auto) 7.3 x10^3uL (1.8-7.7) Lymphocytes # (Auto) 3.3 x10^3/uL (1.0-4.8) Monocytes # (Auto) 0.6 x10^3/uL (0.0-1.1) Eosinophils # (Auto) 0.1 x10^3/uL (0.0-0.7) Basophils # (Auto) 0.0 x10^3/uL (0.0-0.2) Sodium Level 140 mmol/L (136-145) Potassium Level 4.2 mmol/L (3.5-5.1) Chloride Level 104 mmol/L (98-107) Carbon Dioxide Level 25 mmol/L (21-32) Anion Gap 11 (6-14) Blood Urea Nitrogen 13 mg/dL (7-20) Creatinine 0.6 mg/dL (0.6-1.0) Estimated GFR (Cockcroft-Gault) 104.6 BUN/Creatinine Ratio 22 (6-20) Glucose Level 160 mg/dL (70-99) Calcium Level 8.3 mg/dL (8.5-10.1) Total Bilirubin 0.3 mg/dL (0.2-1.0) Aspartate Amino Transf (AST/SGOT) 57 U/L (15-37) Alanine Aminotransferase (ALT/SGPT) 29 U/L (14-59) Alkaline Phosphatase 102 U/L (46-116) Troponin I Quantitative 13.738 ng/mL (0.000-0.055) Total Protein 6.5 g/dL (6.4-8.2) Albumin 3.3 g/dL (3.4-5.0) Albumin/Globulin Ratio 1.0 (1.0-1.7) Heparin Anti-Xa Act, Unfractionated 0.17 IU/mL (0.30-0.70) Review of Systems Review of Systems Ulcerative For cough, runny nose, no chest pain no increase in shortness of breath A 14 point ROS was completed with the following noted as positive: Other systems reviewed and negative. \CONSTITUTIONAL: No fever or chills EYES: No recent changes SKIN: No rash or itching CARDIOVASCULAR: No chest pain, syncope, palpitations, or edema RESPIRATORY: No SOB or cough GASTROINTESTINAL: No nausea, vomiting or abdominal pain NEUROLOGICAL: No headaches or weakness ENDOCRINE: No cold or heat intolerance GENITOURINARY: No urgency or frequency of urination MUSCULOSKELETAL: No back pain or joint pain LYMPHATICS: No enlarged lymph nodes PSYCHIATRIC: No anxiety or depression Assessment and Plan Assessmemt and Plan Problems Medical Problems: (1) Chest pain Status: Acute (2) Elevated troponin Status: Acute Problems: Comment Review of Relevant I have reviewed the following items megan (where applicable) has been applied. Labs Laboratory Tests Test 06/30/17 14:00 06/30/17 16:40 06/30/17 20:10 06/30/17 20:30 White Blood Count 11.1 x10^3/uL (4.0-11.0) Red Blood Count 4.90 x10^6/uL (3.50-5.40) Hemoglobin 14.6 g/dL (12.0-15.5) Hematocrit 43.6 % (36.0-47.0) Mean Corpuscular Volume 89 fL (79-100) Mean Corpuscular Hemoglobin 30 pg (25-35) Mean Corpuscular Hemoglobin Concent 34 g/dL (31-37) Red Cell Distribution Width 17.2 % (11.5-14.5) Platelet Count 303 x10^3/uL (140-400) Neutrophils (%) (Auto) 72 % (31-73) Lymphocytes (%) (Auto) 22 % (24-48) Monocytes (%) (Auto) 4 % (0-9) Eosinophils (%) (Auto) 1 % (0-3) Basophils (%) (Auto) 1 % (0-3) Neutrophils # (Auto) 8.0 x10^3uL (1.8-7.7) Lymphocytes # (Auto) 2.4 x10^3/uL (1.0-4.8) Monocytes # (Auto) 0.5 x10^3/uL (0.0-1.1) Eosinophils # (Auto) 0.1 x10^3/uL (0.0-0.7) Basophils # (Auto) 0.1 x10^3/uL (0.0-0.2) Sodium Level 138 mmol/L (136-145) Potassium Level 4.1 mmol/L (3.5-5.1) Chloride Level 102 mmol/L (98-107) Carbon Dioxide Level 27 mmol/L (21-32) Anion Gap 9 (6-14) Blood Urea Nitrogen 17 mg/dL (7-20) Creatinine 0.9 mg/dL (0.6-1.0) Estimated GFR (Cockcroft-Gault) 65.5 BUN/Creatinine Ratio 19 (6-20) Glucose Level 328 mg/dL (70-99) Calcium Level 8.8 mg/dL (8.5-10.1) Total Bilirubin 0.3 mg/dL (0.2-1.0) Aspartate Amino Transf (AST/SGOT) 19 U/L (15-37) Alanine Aminotransferase (ALT/SGPT) 26 U/L (14-59) Alkaline Phosphatase 107 U/L (46-116) Troponin I Quantitative 1.014 ng/mL (0.000-0.055) 15.506 ng/mL (0.000-0.055) OR-Rvb-N-Type Natriuretic Peptide 1831 pg/mL (0-124) Total Protein 7.0 g/dL (6.4-8.2) Albumin 3.2 g/dL (3.4-5.0) Albumin/Globulin Ratio 0.8 (1.0-1.7) Triglycerides Level 108 mg/dL (0-150) Cholesterol Level 138 mg/dL (0-200) LDL Cholesterol, Calculated 79 mg/dL (0-100) VLDL Cholesterol, Calculated 22 mg/dL (0-40) Non-HDL Cholesterol Calculated 101 mg/dL (0-129) HDL Cholesterol 37 mg/dL (40-60) Cholesterol/HDL Ratio 3.7 Glucose (Fingerstick) 122 mg/dL (70-99) Heparin Anti-Xa Act, Unfractionated < 0.10 IU/mL (0.30-0.70) Test 06/30/17 20:48 07/01/17 03:05 07/01/17 06:00 07/01/17 07:45 Glucose (Fingerstick) 77 mg/dL (70-99) 196 mg/dL (70-99) White Blood Count 11.3 x10^3/uL (4.0-11.0) Red Blood Count 4.86 x10^6/uL (3.50-5.40) Hemoglobin 14.3 g/dL (12.0-15.5) Hematocrit 43.2 % (36.0-47.0) Mean Corpuscular Volume 89 fL (79-100) Mean Corpuscular Hemoglobin 29 pg (25-35) Mean Corpuscular Hemoglobin Concent 33 g/dL (31-37) Red Cell Distribution Width 17.2 % (11.5-14.5) Platelet Count 274 x10^3/uL (140-400) Neutrophils (%) (Auto) 65 % (31-73) Lymphocytes (%) (Auto) 29 % (24-48) Monocytes (%) (Auto) 5 % (0-9) Eosinophils (%) (Auto) 1 % (0-3) Basophils (%) (Auto) 0 % (0-3) Neutrophils # (Auto) 7.3 x10^3uL (1.8-7.7) Lymphocytes # (Auto) 3.3 x10^3/uL (1.0-4.8) Monocytes # (Auto) 0.6 x10^3/uL (0.0-1.1) Eosinophils # (Auto) 0.1 x10^3/uL (0.0-0.7) Basophils # (Auto) 0.0 x10^3/uL (0.0-0.2) Sodium Level 140 mmol/L (136-145) Potassium Level 4.2 mmol/L (3.5-5.1) Chloride Level 104 mmol/L (98-107) Carbon Dioxide Level 25 mmol/L (21-32) Anion Gap 11 (6-14) Blood Urea Nitrogen 13 mg/dL (7-20) Creatinine 0.6 mg/dL (0.6-1.0) Estimated GFR (Cockcroft-Gault) 104.6 BUN/Creatinine Ratio 22 (6-20) Glucose Level 160 mg/dL (70-99) Calcium Level 8.3 mg/dL (8.5-10.1) Total Bilirubin 0.3 mg/dL (0.2-1.0) Aspartate Amino Transf (AST/SGOT) 57 U/L (15-37) Alanine Aminotransferase (ALT/SGPT) 29 U/L (14-59) Alkaline Phosphatase 102 U/L (46-116) Troponin I Quantitative 13.738 ng/mL (0.000-0.055) Total Protein 6.5 g/dL (6.4-8.2) Albumin 3.3 g/dL (3.4-5.0) Albumin/Globulin Ratio 1.0 (1.0-1.7) Heparin Anti-Xa Act, Unfractionated 0.17 IU/mL (0.30-0.70) Laboratory Tests Test 06/30/17 14:00 06/30/17 16:40 06/30/17 20:10 06/30/17 20:30 White Blood Count 11.1 x10^3/uL (4.0-11.0) Red Blood Count 4.90 x10^6/uL (3.50-5.40) Hemoglobin 14.6 g/dL (12.0-15.5) Hematocrit 43.6 % (36.0-47.0) Mean Corpuscular Volume 89 fL (79-100) Mean Corpuscular Hemoglobin 30 pg (25-35) Mean Corpuscular Hemoglobin Concent 34 g/dL (31-37) Red Cell Distribution Width 17.2 % (11.5-14.5) Platelet Count 303 x10^3/uL (140-400) Neutrophils (%) (Auto) 72 % (31-73) Lymphocytes (%) (Auto) 22 % (24-48) Monocytes (%) (Auto) 4 % (0-9) Eosinophils (%) (Auto) 1 % (0-3) Basophils (%) (Auto) 1 % (0-3) Neutrophils # (Auto) 8.0 x10^3uL (1.8-7.7) Lymphocytes # (Auto) 2.4 x10^3/uL (1.0-4.8) Monocytes # (Auto) 0.5 x10^3/uL (0.0-1.1) Eosinophils # (Auto) 0.1 x10^3/uL (0.0-0.7) Basophils # (Auto) 0.1 x10^3/uL (0.0-0.2) Sodium Level 138 mmol/L (136-145) Potassium Level 4.1 mmol/L (3.5-5.1) Chloride Level 102 mmol/L (98-107) Carbon Dioxide Level 27 mmol/L (21-32) Anion Gap 9 (6-14) Blood Urea Nitrogen 17 mg/dL (7-20) Creatinine 0.9 mg/dL (0.6-1.0) Estimated GFR (Cockcroft-Gault) 65.5 BUN/Creatinine Ratio 19 (6-20) Glucose Level 328 mg/dL (70-99) Calcium Level 8.8 mg/dL (8.5-10.1) Total Bilirubin 0.3 mg/dL (0.2-1.0) Aspartate Amino Transf (AST/SGOT) 19 U/L (15-37) Alanine Aminotransferase (ALT/SGPT) 26 U/L (14-59) Alkaline Phosphatase 107 U/L (46-116) Troponin I Quantitative 1.014 ng/mL (0.000-0.055) 15.506 ng/mL (0.000-0.055) KM-Kup-U-Type Natriuretic Peptide 1831 pg/mL (0-124) Total Protein 7.0 g/dL (6.4-8.2) Albumin 3.2 g/dL (3.4-5.0) Albumin/Globulin Ratio 0.8 (1.0-1.7) Triglycerides Level 108 mg/dL (0-150) Cholesterol Level 138 mg/dL (0-200) LDL Cholesterol, Calculated 79 mg/dL (0-100) VLDL Cholesterol, Calculated 22 mg/dL (0-40) Non-HDL Cholesterol Calculated 101 mg/dL (0-129) HDL Cholesterol 37 mg/dL (40-60) Cholesterol/HDL Ratio 3.7 Glucose (Fingerstick) 122 mg/dL (70-99) Heparin Anti-Xa Act, Unfractionated < 0.10 IU/mL (0.30-0.70) Test 06/30/17 20:48 07/01/17 03:05 07/01/17 06:00 07/01/17 07:45 Glucose (Fingerstick) 77 mg/dL (70-99) 196 mg/dL (70-99) White Blood Count 11.3 x10^3/uL (4.0-11.0) Red Blood Count 4.86 x10^6/uL (3.50-5.40) Hemoglobin 14.3 g/dL (12.0-15.5) Hematocrit 43.2 % (36.0-47.0) Mean Corpuscular Volume 89 fL (79-100) Mean Corpuscular Hemoglobin 29 pg (25-35) Mean Corpuscular Hemoglobin Concent 33 g/dL (31-37) Red Cell Distribution Width 17.2 % (11.5-14.5) Platelet Count 274 x10^3/uL (140-400) Neutrophils (%) (Auto) 65 % (31-73) Lymphocytes (%) (Auto) 29 % (24-48) Monocytes (%) (Auto) 5 % (0-9) Eosinophils (%) (Auto) 1 % (0-3) Basophils (%) (Auto) 0 % (0-3) Neutrophils # (Auto) 7.3 x10^3uL (1.8-7.7) Lymphocytes # (Auto) 3.3 x10^3/uL (1.0-4.8) Monocytes # (Auto) 0.6 x10^3/uL (0.0-1.1) Eosinophils # (Auto) 0.1 x10^3/uL (0.0-0.7) Basophils # (Auto) 0.0 x10^3/uL (0.0-0.2) Sodium Level 140 mmol/L (136-145) Potassium Level 4.2 mmol/L (3.5-5.1) Chloride Level 104 mmol/L (98-107) Carbon Dioxide Level 25 mmol/L (21-32) Anion Gap 11 (6-14) Blood Urea Nitrogen 13 mg/dL (7-20) Creatinine 0.6 mg/dL (0.6-1.0) Estimated GFR (Cockcroft-Gault) 104.6 BUN/Creatinine Ratio 22 (6-20) Glucose Level 160 mg/dL (70-99) Calcium Level 8.3 mg/dL (8.5-10.1) Total Bilirubin 0.3 mg/dL (0.2-1.0) Aspartate Amino Transf (AST/SGOT) 57 U/L (15-37) Alanine Aminotransferase (ALT/SGPT) 29 U/L (14-59) Alkaline Phosphatase 102 U/L (46-116) Troponin I Quantitative 13.738 ng/mL (0.000-0.055) Total Protein 6.5 g/dL (6.4-8.2) Albumin 3.3 g/dL (3.4-5.0) Albumin/Globulin Ratio 1.0 (1.0-1.7) Heparin Anti-Xa Act, Unfractionated 0.17 IU/mL (0.30-0.70) Medications Current Medications Morphine Sulfate 2 mg PRN Q15MIN PRN IV/SQ PAIN GREATER THAN 3/10 Last administered on 06/30/17 15:07; Start 06/30/17 at 13:45; Stop 06/30/17 at 17 :02; Status DC Aspirin (Alisha Aspirin) 325 mg 1X ONCE PO Last administered on 06/30/17 14: 33; Start 06/30/17 at 13:45; Stop 06/30/17 at 13:46; Status DC Albuterol Sulfate (Ventolin Neb Soln) 2.5 mg 1X ONCE NEB Last administered on 06/30/17 14:21; Start 06/30/17 at 14:00; Stop 06/30/17 at 14:01; Status DC Benzonatate (Tessalon Perle) 100 mg PRN TID PRN PO COUGH; Start 06/30/17 at 15 :15 Lisinopril (Prinivil) 40 mg DAILY PO ; Start 07/01/17 at 09:00 Mupirocin (Bactroban) 1 erika TID TP Last administered on 06/30/17 21:37; Start 06/30/17 at 21:00 Naproxen (Naprosyn) 250 mg PRN BID PRN PO PAIN/INFLAMMATION; Start 06/30/17 at 15:15 Albuterol Sulfate (Ventolin Neb Soln) 2.5 mg PRN Q6HRS PRN NEB SHORTNESS OF BREATH Last administered on 07/01/17 01:23; Start 06/30/17 at 16:15 Ondansetron HCl (Zofran) 4 mg PRN Q6HRS PRN IV NAUSEA/VOMITING; Start at 15:15 Acetaminophen (Tylenol) 500 mg PRN Q6HRS PRN PO MILD PAIN / TEMP; Start at 15:15 Iohexol (Omnipaque 300 Mg/ml) 100 ml 1X ONCE IV Last administered on 15:54; Start 06/30/17 at 15:30; Stop 06/30/17 at 15:31; Status DC Info (Do NOT chart on this entry -- for MONITORING) 1 each PRN DAILY PRN MC SEE COMMENTS; Start 06/30/17 at 15:30; Stop 07/02/17 at 15:29 Heparin Sodium/ Dextrose 500 ml @ 0 mls/hr CONT PRN IV SEE I/O RECORD Last administered on 06/30/17 17:31; Start 06/30/17 at 16:45 Heparin Sodium (Porcine) (Heparin Sodium) 2,000 unit PRN Q6HRS PRN IV FOR UFH LEVEL LESS THAN 0.2 Last administered on 07/01/17 00:09; Start 06/30/17 at 16 :45 Info (Anti-Coagulation Monitoring By Pharmacy) 1 each PRN DAILY PRN MC SEE COMMENTS; Start 06/30/17 at 16:45 Nicotine (Nicoderm Cq 21mg) 1 patch PRN DAILY PRN TD SMOKING CESSATION; Start 06/30/17 at 17:00 Azithromycin (Zithromax) 250 mg DAILY PO ; Start 07/01/17 at 09:00 Azithromycin (Zithromax) 500 mg 1X ONCE PO Last administered on 12/17/17at 17: 32; Start 06/30/17 at 17:00; Stop 06/30/17 at 17:04; Status DC Insulin Aspart (NovoLOG) 0-9 UNITS TIDWMEALS SQ ; Start 06/30/17 at 17:00 Dextrose (Dextrose 50%-Water Syringe) 12.5 gm PRN Q15MIN PRN IV SEE COMMENTS; Start 06/30/17 at 17:00 Morphine Sulfate 1 mg PRN Q2HR PRN IV PAIN; Start 06/30/17 at 17:00 Diphenhydramine HCl (Benadryl) 25 mg PRN QHS PRN PO INSOMNIA; Start 06/30/17 at 17:00 Tramadol HCl (Ultram) 50 mg PRN Q6HRS PRN PO PAIN; Start 06/30/17 at 17:15 Atorvastatin Calcium (Lipitor) 40 mg QHS PO ; Start 07/01/17 at 09:00 Glipizide (Glucotrol) 5 mg BIDWMEALS PO ; Start 07/01/17 at 08:00 Citalopram Hydrobromide (CeleXA) 40 mg DAILY PO ; Start 07/01/17 at 09:00 Gabapentin (Neurontin) 600 mg TID PO Last administered on 06/30/17t 21:35; Start 06/30/17 at 21:00 Hydrochlorothiazide (Hydrodiuril) 25 mg DAILY PO ; Start 07/01/17 at 09:00 Linagliptin (Tradjenta) 5 mg DAILY PO ; Start 07/01/17 at 09:00 Insulin Aspart (NovoLOG) 0-5 UNITS TIDWMEALS SQ ; Start 07/01/17 at 08:00; Status UNV Dextrose (Dextrose 50%-Water Syringe) 12.5 gm PRN Q15MIN PRN IV SEE COMMENTS; Start 06/30/17 at 20:00; Status UNV Active Scripts Active Doxycycline Hyclate 100 Mg Capsule 1 Cap PO BID Bactroban Cream (Mupirocin) 15 Gm Cream..g. 1 Reika TP TID Lisinopril 40 Mg Tablet 40 Mg PO DAILY Levofloxacin 500 Mg Tablet 500 Mg PO DAILY Proair Hfa Inhaler (Albuterol Sulfate) 8.5 Gm Hfa.aer.ad 1 Puff INH PRN Q6HRS PRN Tessalon Perle (Benzonatate) 100 Mg Capsule 1 Cap PO TID PRN Naproxen 250 Mg Tablet 250 Mg PO BID PRN Reported Januvia (Sitagliptin Phosphate) 25 Mg Tablet 25 Mg PO DAILY Citalopram Hbr (Citalopram Hydrobromide) 40 Mg Tablet 1 Tab PO DAILY Atorvastatin Calcium 40 Mg Tablet 1 Tab PO HS Hydrochlorothiazide Tablet (Hydrochlorothiazide) 12.5 Mg Tablet 1 Tab PO DAILY Glipizide 5 Mg Tablet 1 Tab PO BID Metformin Hcl 1,000 Mg Tablet 1,000 Mg PO BIDWMEALS Gabapentin 600 Mg Tablet 600 Mg PO TID Vitals/I & O Vital Sign - Last 24 Hours 06/30/17 06/30/17 06/30/17 06/30/17 13:40 14:22 14:35 15:08 Temp 98.0 98.0 Pulse 68 75 82 Resp 20 18 18 B/P (MAP) 171/75 (107) 100/58 (72) 157/77 (103) Pulse Ox 98 96 96 O2 Delivery Room Air Room Air Room Air Room Air 06/30/17 06/30/17 06/30/17 06/30/17 15:40 16:35 16:40 19:45 Temp 97.8 98.0 97.8 98.0 Pulse 85 64 72 Resp 18 20 18 B/P (MAP) 147/72 (97) 107/44 (65) 115/55 (75) Pulse Ox 97 96 94 O2 Delivery Room Air Room Air Room Air Room Air 06/30/17 06/30/17 07/01/17 07/01/17 20:40 23:35 01:23 03:50 Temp 98.2 98.2 98.2 98.2 Pulse 66 68 Resp 18 18 B/P (MAP) 146/68 (94) 146/64 (91) Pulse Ox 93 93 O2 Delivery Room Air Room Air Room Air Room Air Intake and Output 06/30/17 06/30/17 07/01/17 15:00 23:00 07:00 Intake Total 474 ml Balance 474 ml MOMO HOBSON MD Jul 01, 2017 08:45
[2017-07-01] MEDS: IPRATRPIUM/ALBUTEROL 0.5/2.5MG 3 ML NEBU. NEB SCH ×4 (08:59→19:23)
[2017-07-01] MEDS: ATORVASTATIN CALCIUM 40 MG TABLET. PO SCH ×2 (09:00→20:14)
[2017-07-01] MEDS: MUPIROCIN 2 % TOPICAL CREAM 15GM TUBE. TP SCH ×3 (09:00→20:15)
[2017-07-01] MEDS: GABAPENTIN 300 MG CAPSULE. PO SCH ×3 (09:03→20:14)
--- NOTE | 2017-07-01 09:40 | PDOC2 ---
CARDIAC CONSULT DATE OF CONSULT Date of Consult DATE: 07/01/17 TIME: 09:27 REASON FOR CONSULT Reason for Consult: Chest pain REFERRING PHYSICIAN Referring Physician: Niles SOURCE Source: Chart review, Patient HISTORY OF PRESENT ILLNESS HISTORY OF PRESENT ILLNESS This is a pleasant 51 yo female admitted for complains of chest pain. Reports that she was having pain between her shoulder blades that radiates to front of her chest. There was associated SOA describing it as tightness with breathing. She could not describe her CP but verbalized that it just hurt. She did not take any pain relievers. This started about 3 days ago going on and off but yesterday it stayed on and finally today she is CP free. Denies any associated n/v, palpitations, frequent dizziness. No prior hx of CVA, CAD, VTE, bleeding but positive for tobaccoism, DM2, HTN, HLP. She thought the whole time this was related to her lungs maybe bronchitis she said. PAST MEDICAL HISTORY Cardiovascular: HTN, Hyperlipidemia Pulmonary: Asthma, COPD CENTRAL NERVOUS SYSTEM: Carpal Tunnel Syndrome GI: No pertinent hx Heme/Onc: No pertinent hx Hepatobiliary: No pertinent hx Psych: No pertinent hx Musculoskeletal: Osteoarthritis Rheumatologic: No pertinent hx Infectious disease: No pertinent hx ENT: No pertinent hx Renal/: No pertinent hx Endocrine: Diabetes (2) Dermatology: No pertinent hx PAST SURGICAL HISTORY Past Surgical History: (x2), Other (bilateral carpal tunnel decompression; left knee tumor removal) FAMILY HISTORY Family History: Coronary Artery Disease (father ) SOCIAL HISTORY Smoke: 1 pack per day (>35 yrs) ALCOHOL: none Drugs: None Lives: with Family CURRENT MEDICATIONS CURRENT MEDICATIONS Current Medications Medications (Trade) Dose Ordered Sig/Erica Route PRN Reason Start Time Stop Time Status Last Admin Dose Admin Morphine Sulfate 2 mg PRN Q15MIN PRN IV/SQ PAIN GREATER THAN 3/10 06/30/17 13:45 06/30/17 17:02 DC 06/30/17 15:07 Aspirin (Alisha Aspirin) 325 mg 1X ONCE PO 06/30/17 13:45 06/30/17 13:46 DC 06/30/17 14:33 Albuterol Sulfate (Ventolin Neb Soln) 2.5 mg 1X ONCE NEB 06/30/17 14:00 06/30/17 14:01 DC 06/30/17 14:21 Mupirocin (Bactroban) 1 roxi TID TP 06/30/17 21:00 06/30/17 21:37 Albuterol Sulfate (Ventolin Neb Soln) 2.5 mg PRN Q6HRS PRN NEB SHORTNESS OF BREATH 06/30/17 16:15 07/01/17 01:23 Iohexol (Omnipaque 300 Mg/ml) 100 ml 1X ONCE IV 06/30/17 15:30 06/30/17 15:31 DC 06/30/17 15:54 Heparin Sodium/ Dextrose 500 ml @ 0 mls/hr CONT PRN IV SEE I/O RECORD 06/30/17 16:45 06/30/17 17:31 Heparin Sodium (Porcine) (Heparin Sodium) 2,000 unit PRN Q6HRS PRN IV FOR UFH LEVEL LESS THAN 0.2 06/30/17 16:45 07/01/17 00:09 Azithromycin (Zithromax) 500 mg 1X ONCE PO 06/30/17 17:00 06/30/17 17:04 DC 06/30/17 17:32 Gabapentin (Neurontin) 600 mg TID PO 06/30/17 21:00 07/01/17 09:03 Albuterol/ Ipratropium (Duoneb) 3 ml RTQID NEB 07/01/17 09:00 07/01/17 08:59 ALLERGIES ALLERGIES: Coded Allergies: Sulfa (Sulfonamide Antibiotics) (Verified Allergy, Intermediate, 11/08/16) amoxicillin (Verified Allergy, Intermediate, RASH, 11/08/16) clavulanic acid (Verified Allergy, Intermediate, RASH, 11/08/16) hydrocodone (Verified Allergy, Intermediate, VOMITING, 11/08/16) ROS Review of System 14 point ROS evaluated with pertinent positives noted per HPI PHYSICAL EXAM General: Alert, Oriented X3, Cooperative, No acute distress HEENT: Atraumatic, Mucous membr. moist/pink Lungs: Other (faint upper and basilar wheeze) Heart: Regular rate (SR), Normal S1, Normal S2, No murmurs Abdomen: Soft, No tenderness Extremities: No cyanosis, No edema Skin: No breakdown, No significant lesion Neuro: Normal speech, Sensation intact Psych/Mental Status: Mental status NL, Other (anxious r/t LHC) MUSCULOSKELETAL: Osteoarthritic changes both hands VITALS VITALS Vital Signs Date Time Temp Pulse Resp B/P (MAP) Pulse Ox O2 Delivery O2 Flow Rate FiO2 07/01/17 08:59 Room Air 07/01/17 07:00 98.1 66 18 124/52 (76) 94 98.1 LABS Lab: Laboratory Tests Test 06/30/17 14:00 06/30/17 16:40 06/30/17 20:10 06/30/17 20:30 White Blood Count 11.1 x10^3/uL (4.0-11.0) Red Blood Count 4.90 x10^6/uL (3.50-5.40) Hemoglobin 14.6 g/dL (12.0-15.5) Hematocrit 43.6 % (36.0-47.0) Mean Corpuscular Volume 89 fL (79-100) Mean Corpuscular Hemoglobin 30 pg (25-35) Mean Corpuscular Hemoglobin Concent 34 g/dL (31-37) Red Cell Distribution Width 17.2 % (11.5-14.5) Platelet Count 303 x10^3/uL (140-400) Neutrophils (%) (Auto) 72 % (31-73) Lymphocytes (%) (Auto) 22 % (24-48) Monocytes (%) (Auto) 4 % (0-9) Eosinophils (%) (Auto) 1 % (0-3) Basophils (%) (Auto) 1 % (0-3) Neutrophils # (Auto) 8.0 x10^3uL (1.8-7.7) Lymphocytes # (Auto) 2.4 x10^3/uL (1.0-4.8) Monocytes # (Auto) 0.5 x10^3/uL (0.0-1.1) Eosinophils # (Auto) 0.1 x10^3/uL (0.0-0.7) Basophils # (Auto) 0.1 x10^3/uL (0.0-0.2) Sodium Level 138 mmol/L (136-145) Potassium Level 4.1 mmol/L (3.5-5.1) Chloride Level 102 mmol/L (98-107) Carbon Dioxide Level 27 mmol/L (21-32) Anion Gap 9 (6-14) Blood Urea Nitrogen 17 mg/dL (7-20) Creatinine 0.9 mg/dL (0.6-1.0) Estimated GFR (Cockcroft-Gault) 65.5 BUN/Creatinine Ratio 19 (6-20) Glucose Level 328 mg/dL (70-99) Calcium Level 8.8 mg/dL (8.5-10.1) Total Bilirubin 0.3 mg/dL (0.2-1.0) Aspartate Amino Transf (AST/SGOT) 19 U/L (15-37) Alanine Aminotransferase (ALT/SGPT) 26 U/L (14-59) Alkaline Phosphatase 107 U/L (46-116) Troponin I Quantitative 1.014 ng/mL (0.000-0.055) 15.506 ng/mL (0.000-0.055) TF-Hrp-B-Type Natriuretic Peptide 1831 pg/mL (0-124) Total Protein 7.0 g/dL (6.4-8.2) Albumin 3.2 g/dL (3.4-5.0) Albumin/Globulin Ratio 0.8 (1.0-1.7) Triglycerides Level 108 mg/dL (0-150) Cholesterol Level 138 mg/dL (0-200) LDL Cholesterol, Calculated 79 mg/dL (0-100) VLDL Cholesterol, Calculated 22 mg/dL (0-40) Non-HDL Cholesterol Calculated 101 mg/dL (0-129) HDL Cholesterol 37 mg/dL (40-60) Cholesterol/HDL Ratio 3.7 Glucose (Fingerstick) 122 mg/dL (70-99) Heparin Anti-Xa Act, Unfractionated < 0.10 IU/mL (0.30-0.70) Test 06/30/17 20:48 07/01/17 03:05 07/01/17 06:00 07/01/17 07:45 Glucose (Fingerstick) 77 mg/dL (70-99) 196 mg/dL (70-99) White Blood Count 11.3 x10^3/uL (4.0-11.0) Red Blood Count 4.86 x10^6/uL (3.50-5.40) Hemoglobin 14.3 g/dL (12.0-15.5) Hematocrit 43.2 % (36.0-47.0) Mean Corpuscular Volume 89 fL (79-100) Mean Corpuscular Hemoglobin 29 pg (25-35) Mean Corpuscular Hemoglobin Concent 33 g/dL (31-37) Red Cell Distribution Width 17.2 % (11.5-14.5) Platelet Count 274 x10^3/uL (140-400) Neutrophils (%) (Auto) 65 % (31-73) Lymphocytes (%) (Auto) 29 % (24-48) Monocytes (%) (Auto) 5 % (0-9) Eosinophils (%) (Auto) 1 % (0-3) Basophils (%) (Auto) 0 % (0-3) Neutrophils # (Auto) 7.3 x10^3uL (1.8-7.7) Lymphocytes # (Auto) 3.3 x10^3/uL (1.0-4.8) Monocytes # (Auto) 0.6 x10^3/uL (0.0-1.1) Eosinophils # (Auto) 0.1 x10^3/uL (0.0-0.7) Basophils # (Auto) 0.0 x10^3/uL (0.0-0.2) Sodium Level 140 mmol/L (136-145) Potassium Level 4.2 mmol/L (3.5-5.1) Chloride Level 104 mmol/L (98-107) Carbon Dioxide Level 25 mmol/L (21-32) Anion Gap 11 (6-14) Blood Urea Nitrogen 13 mg/dL (7-20) Creatinine 0.6 mg/dL (0.6-1.0) Estimated GFR (Cockcroft-Gault) 104.6 BUN/Creatinine Ratio 22 (6-20) Glucose Level 160 mg/dL (70-99) Calcium Level 8.3 mg/dL (8.5-10.1) Total Bilirubin 0.3 mg/dL (0.2-1.0) Aspartate Amino Transf (AST/SGOT) 57 U/L (15-37) Alanine Aminotransferase (ALT/SGPT) 29 U/L (14-59) Alkaline Phosphatase 102 U/L (46-116) Troponin I Quantitative 13.738 ng/mL (0.000-0.055) Total Protein 6.5 g/dL (6.4-8.2) Albumin 3.3 g/dL (3.4-5.0) Albumin/Globulin Ratio 1.0 (1.0-1.7) Heparin Anti-Xa Act, Unfractionated 0.17 IU/mL (0.30-0.70) ASSESSMENT/PLAN ASSESSMENT/PLAN 1. NSTEMI: Troponin peaked at 15, suspecting inferoposterior involvement. \ 2. COPD with continue tobaccoism 3. HTN: controlled 4. HLP: on goal 5. DM2 Recommendations 1. Discussed risks and benefits with pt, agreeable to roceed with LHC 2. TTE. TSH 3. Heparin ongoing, reeval med needs post LHC. Hold metformin in the next 48- 72 hours. 4. Smoking cessation Problems: JUANY CARDONA MAINTENANCE CARPENTER Jul 01, 2017 09:40
[2017-07-01] MEDS ORDERED: IOHEXOL 300 MG/ML 100ML VIAL. ONE ×2 (11:32→12:28)
[2017-07-01] MEDS ORDERED: LIDOCAINE 2% 20 ML VIAL. ONE (11:32)
--- NOTE | 2017-07-01 11:39 | CARD ---
APPROVED REPORT EXAM: Two-dimensional and M-mode echocardiogram with Doppler and color Doppler. Other Information Quality : Good INDICATION Chest Pain 2D DIMENSIONS Left Atrium(2D)3.4 (1.6-4.0cm)IVSd1.5 (0.7-1.1cm) Aortic Root(2D)3.0 (2.0-3.7cm)LVDd4.1 (3.9-5.9cm) LVOT Diameter1.9 (1.8-2.4cm)PWd1.4 (0.7-1.1cm) LVDs2.8 (2.5-4.0cm)FS (%) 31.1 % SV44.5 mlLVEF(%)59.3 (>50%) Aortic Valve AoV Peak Robb.177.6cm/sAoV VTI37.2cm AO Peak GR.12.6mmHgLVOT Peak Robb.117.2cm/s AO Mean GR.6mmHgAVA (VMAX)1.81cm2 COMFORT (VTI)2.20cm2 Mitral Valve MV E Laixagru21.1cm/sMV E Peak Gr.4mmHg MV DECEL [id number] A Bgfiwhpj101.7cm/s MV E Mean Gr.2mmHgE/A Ratio0.8 Tricuspid Valve TR P. [id number]/sRAP [id number] TR Peak Gr.[id number] LEFT VENTRICLE The left ventricle is normal size. There is moderate concentric left ventricular hypertrophy. Left ve ntricle systolic function is normal. The Ejection Fraction is 55-60%. There is normal LV segmental wa ll motion. Transmitral Doppler flow pattern is Grade I-abnormal relaxation pattern. RIGHT VENTRICLE The right ventricle is normal size. The right ventricular systolic function is normal. ATRIA The left atrium size is normal. The right atrium size is normal. The interatrial septum is intact wit h no evidence for an atrial septal defect or patent foramen ovale as noted on 2-D or Doppler imaging. AORTIC VALVE The aortic valve is mildly calcified. Doppler and Color Flow revealed no significant aortic regurgita tion. There is no significant aortic valvular stenosis. MITRAL VALVE Posterior mitral leaflet is heavily calcified. There is no evidence of mitral valve prolapse. There i s no mitral valve stenosis. Doppler and Color Flow revealed no mitral valve regurgitation noted. TRICUSPID VALVE The tricuspid valve is normal in structure and function. Doppler and Color Flow revealed mild tricusp id regurgitation. There is no pulmonary hypertension. The PA pressure was estimated at 19 mmHg. There is no tricuspid valve prolapse or vegetation. There is no tricuspid valve stenosis. PULMONIC VALVE Doppler and Color Flow revealed no pulmonic valvular regurgitation. There is no pulmonic valvular daphnie nosis. GREAT VESSELS The aortic root is normal in size. The ascending aorta is normal in size. The IVC is normal in size a nd collapses >50% with inspiration. PERICARDIAL EFFUSION There is no pleural effusion. There is no evidence of significant pericardial effusion. Critical Notification Critical Value: No <Conclusion> Left ventricle systolic function is normal. The Ejection Fraction is 55-60%. There is normal LV segmental wall motion.
[2017-07-01] MEDS ORDERED: VERAPAMIL 5 MG/2 ML VIAL. ONE (12:11)
[2017-07-01] MEDS ORDERED: HEPARIN for IV BOLUS 10,000 UNIT/10 ML VIAL. ONE (12:11)
[2017-07-01] MEDS ORDERED: fentaNYL PF VIAL 100 MCG/2 ML VIAL ONE (12:11)
[2017-07-01] MEDS ORDERED: MIDAZOLAM HCL/PF 2 MG/2 ML VIAL. ONE ×2 (12:11→12:21)
[2017-07-01] MEDS ORDERED: NITROGLYCERIN 200 MCG/2 ML SYRINGE FOR CATH/VASC LAB. ONE (12:12)
[2017-07-01] MEDS ORDERED: BIVALIRUDIN 250 MG VIAL. IV ONE ×2 (12:28→12:45)
[2017-07-01] MEDS ORDERED: CONTRAST GIVEN MC PRN (12:45)
[2017-07-01] MEDS ORDERED: HEPARIN for IV BOLUS 10,000 UNIT/10 ML VIAL. IART ONE (12:45)
[2017-07-01] MEDS ORDERED: LIDOCAINE 2% 20 ML VIAL. IJ ONE (12:45)
[2017-07-01] MEDS ORDERED: NITROGLYCERIN 200 MCG/2 ML SYRINGE FOR CATH/VASC LAB. IART ONE (12:45)
[2017-07-01] MEDS ORDERED: IODIXANOL 320 MG/ML 100 ML VIAL. IART ONE (12:45)
[2017-07-01] MEDS ORDERED: MIDAZOLAM HCL/PF 2 MG/2 ML VIAL. IV ONE (12:45)
[2017-07-01] MEDS ORDERED: fentaNYL PF VIAL 100 MCG/2 ML VIAL IV ONE (12:45)
[2017-07-01] MEDS ORDERED: VERAPAMIL 5 MG/2 ML VIAL. IART ONE (12:45)
[2017-07-01] MEDS ORDERED: CLOPIDOGREL BISULFATE 75 MG TABLET PO ONE (13:00)
[2017-07-01] MEDS ORDERED: ASPIRIN 325 MG TABLET PO ONE (13:00)
--- NOTE | 2017-07-01 13:03 | PDOC ---
MODERATE SEDATION ASSESSMENT RISKS/ALTERNATIVES Risks/Alternatives Risks and alternatives of this type of sedation and procedure discussed with: RISK/ALTERNATIVES: Patient H & P ON CHART H & P H & P on chart and reviewed for co-morbid conditions and appropriate labs. H&P ON CHART: Yes STATUS PREG STATUS ASSESSED: N/A MEDS/ALLERGIES REVIEWED Meds/Allergies Reviewed Medications and Allergies including time and route of recently administered narcotics and sedatives. MEDS/ALLERGIES REVIEWED: Yes ASA RATING ASA RATING: II AIRWAY ASSESSMENT Airway Assessment Airway patency, oral function limitations, presence of caps, crowns, dentures, partials, and ability to extend neck assessed. AIRWAY ASSESSMENT: Yes MALLAMPATI SCORE MALLAMPATI SCORE: II PRE-SEDATION ASSESSMENT PRE-SEDATION ASSESSMENT: Yes SONIA HANDLEY MD Jul 01, 2017 13:03
[2017-07-01] MEDS ORDERED: CLOPIDOGREL BISULFATE 75 MG TABLET ONE (13:09)
[2017-07-01] MEDS ORDERED: ACETAMINOPHEN 325 MG TABLET. PO PRN (13:15)
[2017-07-01] MEDS ORDERED: NITROGLYCERIN SUBLINGUAL 0.4 MG BOTTLE OF 25. SL PRN (13:15)
[2017-07-01] MEDS ORDERED: fentaNYL PF VIAL 100 MCG/2 ML VIAL IV PRN (13:15)
--- NOTE | 2017-07-01 13:18 | CARD ---
APPROVED REPORT Procedure(s) performed: 1. Left heart catheterization, selective coronary angiography via right ruvalcaba sradial approach 2. Successful PCI/stent placement to the obtuse marginal branch of left circumflex artery Sedation Time: 52 Minutes INDICATION The indication(s) include : non-STEMI . PROCEDURE NARRATIVE After explaining the risks, benefits and alternative options, informed consent was obtained from agatha ent. Patient was brought to the cardiac Railroad Signal And Switch Operator and right wrist was prepped and draped in the usual fashion after confirming a positive modified Héctor's test. Arterial access was obtained in the [facility] radial artery and a 6 [place]an sheath was inserted. 6 [place] Garrett catheter was used to perform norma ective angiography of the left and right coronary arteries. LVEDP and transaortic gradients remeasure d. Left ventriculography was not performed due to recent noninvasive assessment of LV function. The f ollowing findings were noted. FINDINGS 1. Hemodynamics: Left ventricular end-diastolic pressure of 28 mmHg. No pullback gradient across th e aortic valve. 2. Coronary angiography: a. The left main coronary artery arose from the left sinus of Valsalva, gave rise to the left anteri or descending and left circumflex arteries and did not show any significant stenosis. b. The left anterior descending artery itself did not show any significant stenosis. The diagonal br anch showed 40% proximal segment stenosis. c. The left circumflex artery showed 90% stenosis in the midsegment of a large obtuse marginal branc h. The proximal segment of this vessel showed 40-50% stenosis. d. The right coronary artery was a dominant vessel arising from the right sinus of Valsalva that did not show any significant stenosis. INTERVENTION The left main coronary artery was engaged with a 6 Chilean XB 3.0 guide catheter and the stenosis in t he obtuse marginal branch of left circumflex artery was crossed with a 0.014 inch [facility]. This was treated with overlapping 2.5 x 18 and 2.5 x 12 mm MultiLink mini vision stents. Follo w-up angiography showed resolution of the stenosis to 0% with MARINE-3 distal flow. Patient tolerated t he procedure well. Hemostasis was achieved using TR band with there were no immediate complications. Conclusion 1. Severe single-vessel coronary artery disease 2. Successful PCI/stent placement to the obtuse marginal branch of left circumflex artery Recommendations 1. Aspirin 325 mg daily 2. Plavix 75 mg daily for preferably one year 3. Cardiovascular risk factor modification
[2017-07-01] MEDS: glipiZIDE 5 MG TABLET PO SCH ×2 (14:26→16:35)
[2017-07-01] MEDS: LINAGLIPTIN 5 MG TABLET PO SCH (14:27)
[2017-07-01] MEDS: CITALOPRAM 20 MG TABLET. PO SCH (14:27)
[2017-07-01] MEDS: hydroCHLOROthiazide 25 MG TABLET PO SCH (14:27)
[2017-07-01] MEDS: AZITHROMYCIN 250 MG TABLET. PO SCH (14:27)
[2017-07-01] MEDS: LISINOPRIL 40 MG TABLET. PO SCH (14:28)
[2017-07-01] MEDS: NICOTINE 21MG PATCH. TD PRN (15:05)
[2017-07-01] MEDS: IV 1/2 NORMAL SALINE 1,000 ML IV SCH (15:05)
[2017-07-01] MEDS: ACETAMINOPHEN 500 MG TABLET PO PRN (20:14)
[2017-07-01] MEDS: METOPROLOL TART IMMED RELEASE 25 MG TABLET. PO SCH (20:14)
[2017-07-02] MEDS: IV 1/2 NORMAL SALINE 1,000 ML IV SCH (03:15)
[2017-07-02 03:16] VITALS: BP 118/44
[2017-07-02 07:00] VITALS: BP 114/52
[2017-07-02] MEDS: NICOTINE 21MG PATCH. TD PRN (07:48)
[2017-07-02] MEDS: LISINOPRIL 40 MG TABLET. PO SCH (07:51)
[2017-07-02] MEDS: ACETAMINOPHEN 500 MG TABLET PO PRN (07:51)
[2017-07-02] MEDS: METOPROLOL TART IMMED RELEASE 25 MG TABLET. PO SCH (07:51)
[2017-07-02] MEDS: glipiZIDE 5 MG TABLET PO SCH (07:51)
[2017-07-02] MEDS: LINAGLIPTIN 5 MG TABLET PO SCH (07:52)
[2017-07-02] MEDS: CITALOPRAM 20 MG TABLET. PO SCH (07:52)
[2017-07-02] MEDS: AZITHROMYCIN 250 MG TABLET. PO SCH (07:57)
[2017-07-02] MEDS: MUPIROCIN 2 % TOPICAL CREAM 15GM TUBE. TP SCH (07:58)
[2017-07-02] MEDS ORDERED: CLOPIDOGREL BISULFATE 75 MG TABLET PO SCH (08:00)
[2017-07-02] MEDS ORDERED: ASPIRIN ENTERIC COATED 325 MG TABLET.DR. PO SCH (08:00)
[2017-07-02] MEDS: IPRATRPIUM/ALBUTEROL 0.5/2.5MG 3 ML NEBU. NEB SCH ×2 (08:02→12:11)
[2017-07-02] MEDS: GABAPENTIN 300 MG CAPSULE. PO SCH (09:29)
[2017-07-02] MEDS: INSULIN ASPART 300 UNITS/3 ML INSULN.PEN SQ SCH (09:33)
[2017-07-02] MEDS: hydroCHLOROthiazide 25 MG TABLET PO SCH (09:35)
[2017-07-02 11:00] VITALS: BP 117/42
[2017-07-02] MEDS ORDERED: HYDR12.53 PO (11:58)
[2017-07-02] MEDS ORDERED: CARV12.5 PO (11:58)
[2017-07-02] MEDS ORDERED: ASPI325T11 PO (11:58)
[2017-07-02] MEDS ORDERED: CLOP75TA PO (11:58)
--- NOTE | 2017-07-02 12:01 | PDOC3 ---
Discharge Summary Visit Information Date of Admission: Jun 30, 2017 Date of Discharge: Jul 02, 2017 Admitting Diagnosis Comment: NSTEMI, trop peaked at 18 status post C with 2 stents, 07/01/17 RSR prime pattern, diabetes type 2 uncontrolled, hemoglobin A1c 14 Asthma/COPD, current smoker acute bronchitis Final Diagnosis Problems Medical Problems: (1) Chest pain Status: Acute (2) Elevated troponin Status: Acute Brief Hospital Course Allergies Allergies Coded Allergies Type Severity Reaction Last Updated Verified Sulfa (Sulfonamide Antibiotics) Allergy Intermediate 11/08/16 Yes amoxicillin Allergy Intermediate RASH 11/08/16 Yes clavulanic acid Allergy Intermediate RASH 11/08/16 Yes hydrocodone Allergy Intermediate VOMITING 11/08/16 Yes Vital Signs Vital Signs Date Time Temp Pulse Resp B/P (MAP) Pulse Ox O2 Delivery O2 Flow Rate FiO2 07/02/17 08:03 Room Air 07/02/17 07:51 66 118/44 07/02/17 07:00 98.0 18 96 98.0 Lab Results Laboratory Tests Test 06/30/17 14:00 06/30/17 16:40 06/30/17 20:10 06/30/17 20:30 White Blood Count 11.1 x10^3/uL (4.0-11.0) Red Blood Count 4.90 x10^6/uL (3.50-5.40) Hemoglobin 14.6 g/dL (12.0-15.5) Hematocrit 43.6 % (36.0-47.0) Mean Corpuscular Volume 89 fL (79-100) Mean Corpuscular Hemoglobin 30 pg (25-35) Mean Corpuscular Hemoglobin Concent 34 g/dL (31-37) Red Cell Distribution Width 17.2 % (11.5-14.5) Platelet Count 303 x10^3/uL (140-400) Neutrophils (%) (Auto) 72 % (31-73) Lymphocytes (%) (Auto) 22 % (24-48) Monocytes (%) (Auto) 4 % (0-9) Eosinophils (%) (Auto) 1 % (0-3) Basophils (%) (Auto) 1 % (0-3) Neutrophils # (Auto) 8.0 x10^3uL (1.8-7.7) Lymphocytes # (Auto) 2.4 x10^3/uL (1.0-4.8) Monocytes # (Auto) 0.5 x10^3/uL (0.0-1.1) Eosinophils # (Auto) 0.1 x10^3/uL (0.0-0.7) Basophils # (Auto) 0.1 x10^3/uL (0.0-0.2) Sodium Level 138 mmol/L (136-145) Potassium Level 4.1 mmol/L (3.5-5.1) Chloride Level 102 mmol/L (98-107) Carbon Dioxide Level 27 mmol/L (21-32) Anion Gap 9 (6-14) Blood Urea Nitrogen 17 mg/dL (7-20) Creatinine 0.9 mg/dL (0.6-1.0) Estimated GFR (Cockcroft-Gault) 65.5 BUN/Creatinine Ratio 19 (6-20) Glucose Level 328 mg/dL (70-99) Calcium Level 8.8 mg/dL (8.5-10.1) Total Bilirubin 0.3 mg/dL (0.2-1.0) Aspartate Amino Transf (AST/SGOT) 19 U/L (15-37) Alanine Aminotransferase (ALT/SGPT) 26 U/L (14-59) Alkaline Phosphatase 107 U/L (46-116) Troponin I Quantitative 1.014 ng/mL (0.000-0.055) 15.506 ng/mL (0.000-0.055) DZ-Vsu-Z-Type Natriuretic Peptide 1831 pg/mL (0-124) Total Protein 7.0 g/dL (6.4-8.2) Albumin 3.2 g/dL (3.4-5.0) Albumin/Globulin Ratio 0.8 (1.0-1.7) Triglycerides Level 108 mg/dL (0-150) Cholesterol Level 138 mg/dL (0-200) LDL Cholesterol, Calculated 79 mg/dL (0-100) VLDL Cholesterol, Calculated 22 mg/dL (0-40) Non-HDL Cholesterol Calculated 101 mg/dL (0-129) HDL Cholesterol 37 mg/dL (40-60) Cholesterol/HDL Ratio 3.7 Glucose (Fingerstick) 122 mg/dL (70-99) Heparin Anti-Xa Act, Unfractionated < 0.10 IU/mL (0.30-0.70) Test 06/30/17 20:48 07/01/17 03:05 07/01/17 06:00 07/01/17 07:45 Glucose (Fingerstick) 77 mg/dL (70-99) 196 mg/dL (70-99) White Blood Count 11.3 x10^3/uL (4.0-11.0) Red Blood Count 4.86 x10^6/uL (3.50-5.40) Hemoglobin 14.3 g/dL (12.0-15.5) Hematocrit 43.2 % (36.0-47.0) Mean Corpuscular Volume 89 fL (79-100) Mean Corpuscular Hemoglobin 29 pg (25-35) Mean Corpuscular Hemoglobin Concent 33 g/dL (31-37) Red Cell Distribution Width 17.2 % (11.5-14.5) Platelet Count 274 x10^3/uL (140-400) Neutrophils (%) (Auto) 65 % (31-73) Lymphocytes (%) (Auto) 29 % (24-48) Monocytes (%) (Auto) 5 % (0-9) Eosinophils (%) (Auto) 1 % (0-3) Basophils (%) (Auto) 0 % (0-3) Neutrophils # (Auto) 7.3 x10^3uL (1.8-7.7) Lymphocytes # (Auto) 3.3 x10^3/uL (1.0-4.8) Monocytes # (Auto) 0.6 x10^3/uL (0.0-1.1) Eosinophils # (Auto) 0.1 x10^3/uL (0.0-0.7) Basophils # (Auto) 0.0 x10^3/uL (0.0-0.2) Sodium Level 140 mmol/L (136-145) Potassium Level 4.2 mmol/L (3.5-5.1) Chloride Level 104 mmol/L (98-107) Carbon Dioxide Level 25 mmol/L (21-32) Anion Gap 11 (6-14) Blood Urea Nitrogen 13 mg/dL (7-20) Creatinine 0.6 mg/dL (0.6-1.0) Estimated GFR (Cockcroft-Gault) 104.6 BUN/Creatinine Ratio 22 (6-20) Glucose Level 160 mg/dL (70-99) Calcium Level 8.3 mg/dL (8.5-10.1) Total Bilirubin 0.3 mg/dL (0.2-1.0) Aspartate Amino Transf (AST/SGOT) 57 U/L (15-37) Alanine Aminotransferase (ALT/SGPT) 29 U/L (14-59) Alkaline Phosphatase 102 U/L (46-116) Troponin I Quantitative 13.738 ng/mL (0.000-0.055) Total Protein 6.5 g/dL (6.4-8.2) Albumin 3.3 g/dL (3.4-5.0) Albumin/Globulin Ratio 1.0 (1.0-1.7) Thyroid Stimulating Hormone (TSH) 0.821 uIU/mL (0.358-3.74) Heparin Anti-Xa Act, Unfractionated 0.17 IU/mL (0.30-0.70) Test 07/01/17 11:41 07/01/17 17:35 07/01/17 20:50 Glucose (Fingerstick) 192 mg/dL (70-99) 163 mg/dL (70-99) 167 mg/dL (70-99) Laboratory Tests Test 07/01/17 17:35 07/01/17 20:50 Glucose (Fingerstick) 163 mg/dL (70-99) 167 mg/dL (70-99) Brief Hospital Course Ms. Diez is a 51 old female, who drives a bus for a living, admitted for chest pain. Troponin peaked at 18. Underwent C needed 2 stents. Patient is self-pay. Amazingly she is on some Celexa gabapentin, nausea and some other medications despite being self-pay. She needs to be discharged on new medications namely a statin 40, lisinopril 40 , Coreg 12.5 by mouth twice a day, continue her HCTZ or rather increase her HCTZ from 12.5-25, aspirin 325, Plavix 75, she is self-pay, but did be gave her good Rx prescription so that her Plavix only cost $[address] [facility]. Discussed with family at bedside and cardiology. Patient seen and examined, discharge time 32 minutes.,time coordinating self pay status, costs of Plavix etc. All the medications faxed to her [facility] pharmacy and legends On cells performed Dr. Lou, procedures performed [facility] with 2 stents Discharge Information Condition at Discharge: Improved, Stable Disposition/Orders: D/C to Home Scheduled Atorvastatin Calcium (Atorvastatin Calcium), 1 TAB PO HS, (Reported) Citalopram Hydrobromide (Citalopram Hbr), 1 TAB PO DAILY, (Reported) Doxycycline Hyclate (Doxycycline Hyclate), 1 CAP PO BID Gabapentin (Gabapentin), 600 MG PO TID, (Reported) Glipizide (Glipizide), 1 TAB PO BID, (Reported) Hydrochlorothiazide (Hydrochlorothiazide Tablet), 1 TAB PO DAILY, (Reported) Levofloxacin (Levofloxacin), 500 MG PO DAILY Lisinopril (Lisinopril), 40 MG PO DAILY Metformin Hcl (Metformin Hcl), 1,000 MG PO BIDWMEALS, (Reported) Mupirocin Calcium (Bactroban Cream), 1 ENRIQUE TP TID Sitagliptin Phosphate (Januvia), 25 MG PO DAILY, (Reported) Scheduled PRN Albuterol Sulfate (Proair Hfa Inhaler), 1 PUFF INH PRN Q6HRS PRN for SHORTNESS OF BREATH Benzonatate (Tessalon Perle), 1 CAP PO TID PRN for COUGH Naproxen (Naproxen), 250 MG PO BID PRN for PAIN MOMO HOBSON MD Jul 02, 2017 12:01
--- NOTE | 2017-07-02 13:09 | PDOC ---
CARDIO Progress Notes Date and Time Date of Service 07/02/2017 Time of Evaluation 1250 Subjective Subjective: No Chest Pain, No shortness of breath, No Palpitations Vitals Vitals Vital Signs Date Time Temp Pulse Resp B/P (MAP) Pulse Ox O2 Delivery O2 Flow Rate FiO2 07/02/17 12:11 Room Air 07/02/17 11:00 97.7 63 18 117/42 (67) 100 97.7 Weight Weight [ ] Input and Output Intake and Output Intake and Output 07/02/17 07:00 Intake Total 1839 ml Output Total 300 ml Balance 1539 ml Intake Oral 680 ml IV Total 1159 ml Output Urine Total 300 ml # Voids 3 Laboratory Labs Laboratory Tests Test 07/01/17 17:35 07/01/17 20:50 Glucose (Fingerstick) 163 mg/dL (70-99) 167 mg/dL (70-99) Physical Exam HEENT: Neck Supple W Full Motion Chest: Symmetric LUNGS: Clear to Auscultation Heart: S1S2, RRR (SR) Abdomen: Soft N/T Extremities: No Edema, No Calf Tenderness Neurology: alert, oriented, follow commands Other Exams right wrist arteriotomy site intact, no erythema, swelling, neurovascular status intact. Assessment Assessment 1. NSTEMI: PCI/BMS to OM. EF normal with good LV systolic function 2. COPD with continue tobaccoism 3. HTN: controlled 4. HLP: on goal 5. DM2 Recommendations 1. ASA/plavix. 2. Continue with secondary prevention 3. Lifestyle modification. Encouraged cardiac rehab but likely unlikely due to financial constraints. 4. Smoking cessation 5. f/U in 4 weeks. JUANY CARDONA APRN Jul 02, 2017 13:09
== END 2017-07-02 14:30 | disposition home or self-care (01) | DRG 249 ==
LOC: ER 13:27 → 2 SOUTH 15:19
PROVIDERS: ADMIT Internal Medicine; ATTEND Internal Medicine
PROC: 02703DZ Dilation of Coronary Artery, One Artery with Intraluminal Device, Percutaneous Approach (ICD-10-PCS; principal; 2017-07-01)
PROC: 4A023N7 Measurement of Cardiac Sampling and Pressure, Left Heart, Percutaneous Approach (ICD-10-PCS; 2017-07-01)
PROC: B2111ZZ Fluoroscopy of Multiple Coronary Arteries using Low Osmolar Contrast (ICD-10-PCS; 2017-07-01)
DX: I21.4 Non-ST elevation (NSTEMI) myocardial infarction (principal); E11.42 Type 2 diabetes mellitus with diabetic polyneuropathy; J44.0 Chronic obstructive pulmonary disease with (acute) lower respiratory infection; E11.65 Type 2 diabetes mellitus with hyperglycemia; E78.5 Hyperlipidemia, unspecified; F17.210 Nicotine dependence, cigarettes, uncomplicated; I10 Essential (primary) hypertension; I25.10 Atherosclerotic heart disease of native coronary artery without angina pectoris; J20.9 Acute bronchitis, unspecified; Z79.899 Other long term (current) drug therapy; Z82.49 Family history of ischemic heart disease and other diseases of the circulatory system; F32.9 Major depressive disorder, single episode, unspecified; M19.90 Unspecified osteoarthritis, unspecified site; Z79.4 Long term (current) use of insulin; Z88.2 Allergy status to sulfonamides; Z88.8 Allergy status to other drugs, medicaments and biological substances
CPT/HCPCS: 36415; 71010; 71275; 80053; 80061; 82962; 83880; 84443; 84484; 85025; 85520; 92928; 93005; 93306; 93458; 94640; 96374; 96376; 99152; 99153; 99406; C1769; C1877; C1887; C1892; J0583; J1644; J1815; J2250; J2270; J3010; J3490; J7613; J7620; Q0144; Q9967; 99285-25; J2001

== ENCOUNTER 2017-12-23 19:46 | Emergency (ER) | payer SELFPAY ==
[2017-12-23 20:30] LABS: ADD MAN DIFF? NO
[2017-12-23] MEDS: KETOROLAC 30 MG/ML INJ. IV (20:32)
[2017-12-23 20:33] LABS: BASO # 0.1 x10^3/uL (0.0-0.2); BASO % 1 % (0-3); EOS # 0.1 x10^3/uL (0.0-0.7); EOS % 1 % (0-3); HEMATOCRIT 39.2 % (36.0-47.0); HEMOGLOBIN 13.4 g/dL (12.0-15.5); LYMPH # 3.2 x10^3/uL (1.0-4.8); LYMPH % 31 % (24-48); MEAN CORPUSCULAR HEMOGLOBIN 31 pg (25-35); MEAN CORPUSCULAR HGB CONC 34 g/dL (31-37); MEAN CORPUSCULAR VOLUME 91 fL (79-100); MONO # 0.5 x10^3/uL (0.0-1.1); MONO % 5 % (0-9); NEUT # 6.7 x10^3uL (1.8-7.7); NEUT % 63 % (31-73); PLATELET COUNT 341 x10^3/uL (140-400); RED CELL DISTRIBUTION WIDTH 15.7 % (11.5-14.5); WHITE BLOOD COUNT 10.6 x10^3/uL (4.0-11.0)
[2017-12-23] MEDS: IV NORMAL SALINE 1000ML BAG 1,000 ML IV (20:33)
[2017-12-23 20:42] LABS: PROTHROMBIN TIME PATIENT 12.6 SEC (11.7-14.0)
[2017-12-23 20:56] LABS: ANION GAP 10 (6-14); BLOOD UREA NITROGEN 30 mg/dL (7-20); CALCIUM 8.4 mg/dL (8.5-10.1); CARBON DIOXIDE 25 mmol/L (21-32); CHLORIDE 103 mmol/L (98-107); CREATININE 1.1 mg/dL (0.6-1.0); GFR 51.8; GLUCOSE 270 mg/dL (70-99); POTASSIUM 4.2 mmol/L (3.5-5.1); SODIUM 138 mmol/L (136-145)
[2017-12-23 21:02] LABS: TROPONINI < 0.017 ng/mL (0.000-0.055)
[2017-12-23 21:05] LABS: NT-PRO BNP 1013 pg/mL (0-124)
== END 2017-12-24 00:53 | disposition home or self-care (01) ==
LOC: ER 12-24 00:53
DX: R07.89 Other chest pain (principal); J45.909 Unspecified asthma, uncomplicated; J44.9 Chronic obstructive pulmonary disease, unspecified; F32.9 Major depressive disorder, single episode, unspecified; E11.9 Type 2 diabetes mellitus without complications; E78.00 Pure hypercholesterolemia, unspecified; I10 Essential (primary) hypertension; I25.10 Atherosclerotic heart disease of native coronary artery without angina pectoris; Z88.1 Allergy status to other antibiotic agents; Z88.5 Allergy status to narcotic agent; Z88.2 Allergy status to sulfonamides
CPT/HCPCS: 36415; 71045; 80048; 83880; 84484; 85025; 85610; 93005; 96374; 99285-25; J1885; J7030